=== PATIENT | male | born 1990 | race Caucasian/White ===

== ENCOUNTER 2017-01-07 09:23 | Inpatient (IN) | payer OTHER ==
[~2017-01-07] VITALS: Ht 193 cm; Wt 150.7 kg
--- NOTE | 2017-01-07 11:27 | DIAGNOSTIC IMAGING REPORT ---
PROCEDURE: XR TIBIA AND FIBULA - RIGHT INDICATION: TRAUMA/INJURY TECHNIQUE: Two views of the right tibia-fibula. COMPARISON: None. FINDINGS: Normal mineralization. No fractures. Normal osseous alignment. No suspicious soft-tissue calcification or radiodense foreign bodies. IMPRESSION: 1. Negative study.
--- NOTE | 2017-01-07 12:21 | ED CLINICAL REPORT ---
Clinical Report - Physicians/Mid Levels [facility] [address] [place] [address] 01/07/2017 9:24 Patient: BERNADETTE AGRAWAL Time Seen: 09:37 Smith 2016. Arrived- By ambulance. Historian- patient and EMS personnel. CPT: ER phys charges level 5 (#[id number]). HISTORY OF PRESENT ILLNESS Chief Complaint: Injury to right leg. 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 Fell. Patient is experiencing moderate pain. No other injury. REVIEW OF SYSTEMS The patient complains of pain on weight bearing. No swelling, tingling, weakness, numbness or suspected foreign body. No skin laceration, nasal congestion, sore throat, chest pain or cough. No difficulty breathing, pedal edema, palpitations, abdominal pain or diarrhea. No nausea, vomiting, urinary frequency, hematuria or alteration in mental status. No head injury, weakness, diabetic symptoms, easy bruising or difficulty with urination. The patient has had fever, chills, fatigue and calf pain. He has had difficulty walking. Abrasion right leg. All systems otherwise negative, except as recorded above. PAST HISTORY See nurses notes. ( Foot surgery). Problems: no known problems. Medications: Ibuprofen Oral. Allergies: No Known Drug Allergy. SOCIAL HISTORY Never smoker. History of drug use: marijuana. No alcohol use. ADDITIONAL NOTES The nursing notes have been reviewed. PHYSICAL EXAM Vital Signs: 01/07/2017 09:25 BP: 131/77. HR: 121. RR: 16. O2 saturation: 98%. Temp: 99 F. Pain level now: 7/10. Appearance: Alert. Appears to be in pain. Patient in mild distress. Head: Head atraumatic. Eyes: Eyes normal inspection. ENT: Pharynx normal. Neck: Normal inspection. CVS: Normal heart rate and rhythm. Heart sounds normal. Pulses normal. Respiratory: No respiratory distress. Breath sounds normal. Chest nontender. Abdomen: Soft and nontender. Back: Normal inspection. No tenderness. ROM normal. Skin: Skin warm. Moderate, erythematous skin rash located on the right leg. Extremities: Right leg: moderate erythema, tenderness and swelling and small abrasion located in the mid leg. Limited weight bearing secondary to pain. Neurovascular intact distally. No ecchymosis, foreign body or deformity. Extremities otherwise negative. Gait: Limping gait. Neuro, Vascular and Tendons: Vascular status intact. Sensation intact. Motor intact. Tendon function intact. Neuro: Oriented X 3. No motor deficit. No sensory deficit. LABS, X-RAYS, AND EKG X-Rays: Right tib/fib negative. Laboratory Tests: CBC w Manual Diff: (RADHA: 01/08/2017 06:00) ( IlgRcvd 01/08/2017 06:47) Final results Test Result Flag Units (Reference) WHITE BLOOD COUNT NO REFLEX 12.1 H K/uL (4.5-11.5) RED BLOOD COUNT 5.81 M/uL (4.50-5.90) HEMOGLOBIN 12.0 L gm/dL (13.5-17.5) HEMATOCRIT 38.5 L % (41.0-53.0) MEAN CELL VOLUME 66 L fL (80-100) MEAN CORPUSCULAR HGB 21 L pg (26-34) MEAN CORPUSCULAR HGB CONC 31 g/dL (31-37) RED CELL DISTRIBUTION WIDTH 16.8 H % (11.6-14.8) PLATELET COUNT 114 L K/uL (150-400) POLY % 80 H % (50-75) BAND % 3 % (0-8) LYMPH 13 L % (25-40) MONO 4 % (3-14) EOSINOPHIL % 0 % (0-4) BASOPHIL % 0 % (0-2) METAMYELOCYTE % 0 % (0-1) MYELOCYTE 0 % (0-1) OTHER CELL TYPE 0 RBC MORPHOLOGY 1+ ANISOCYTOSIS~~1+ HYPOCHROMIA BMP: (RADHA: 01/08/2017 06:00) ( MsgRcvd 01/08/2017 07:54) Final results Test Result Flag Units (Reference) GLUCOSE 237 H mg/dL (70-110) BUN 13 mg/dL (7-18) CREATININE 1.1 mg/dL (0.6-1.3) Estimated GFR >60 mL/min Estimated GFR- >60 mL/min Note: Persistent reduction over 3 months in eGFR<60 mL/min/1.73 m2 defines CKD. Patients with eGFR values>=60 mL/min/1.73 m2 may also have CKD if evidence ofpersistent proteinuria. Additional information may be foundat www.[email or web address].org. SODIUM 137 mmol/L (136-145) POTASSIUM 3.7 mmol/L (3.5-5.1) CHLORIDE 100 mmol/L (98-107) CARBON DIOXIDE 27 mmol/L (21-32) CALCIUM 7.7 L mg/dL (8.5-10.1) VITAMIN B12 146 pg/mL (211-946) FOLATE 14.6 ng/mL (>3.0) CBC w Diff: (RADHA: 01/07/2017 09:45) ( MsgRcvd 01/07/2017 10:35) Final results Test Result Flag Units (Reference) WHITE BLOOD COUNT 16.4 H K/uL (4.5-11.5) RED BLOOD COUNT 6.26 *H M/uL (4.50-5.90) HEMOGLOBIN 12.9 L gm/dL (13.5-17.5) HEMATOCRIT 41.2 % (41.0-53.0) MEAN CELL VOLUME 66 L fL (80-100) MEAN CORPUSCULAR HGB 21 L pg (26-34) MEAN CORPUSCULAR HGB CONC 31 g/dL (31-37) RED CELL DISTRIBUTION WIDTH 18.0 H % (11.6-14.8) PLATELET COUNT 150 K/uL (150-400) NEUTROPHIL % 84.4 H % (50-75) LYMPH % 8.5 L % (25-40) MONO % 6.8 % (3-14) EOSINOPHIL % 0 % (0-4) BASOPHIL % 0.3 % (0-2) RBC MORPHOLOGY 1+ ANISOCYTOSIS~~3+ MICROCYTOSIS~~1+ HYPOCHROMIA~~1+ POLYCHROMIA~~1+ STOMATOCYTOSIS [id number]: (RADHA: 01/07/2017 09:45) ( MsgRcvd 01/07/2017 10:14) Final results Test Result Flag Units (Reference) D-DIMER QUANTITATIVE < 0.27 L ug/mLFEU (0.27-0.52) The primary value of this quantitative assay relates toits negative predictive value (i.e. exclusion) of pulmonaryembolism/deep vein thrombosis/DIC.Elevated levels of d-dimer may also occur with:, age, cancer, inflammation, liver disease,post-op, infection, hematoma, coronary disease, peripheralarteriopathy, bleeding disorders and thrombolytic treatment.Results should be correlated with other clinical andradiological data.Testing Methodology: Latex Immunoassay BMP: (RADHA: 01/07/2017 16:00) ( MsgRcvd 01/07/2017 16:30) Final results Test Result Flag Units (Reference) GLUCOSE 222 H mg/dL (70-110) BUN 12 mg/dL (7-18) CREATININE 1.0 mg/dL (0.6-1.3) Estimated GFR >60 mL/min Estimated GFR- >60 mL/min Note: Persistent reduction over 3 months in eGFR<60 mL/min/1.73 m2 defines CKD. Patients with eGFR values>=60 mL/min/1.73 m2 may also have CKD if evidence ofpersistent proteinuria. Additional information may be foundat [email or web address].org. SODIUM 137 mmol/L (136-145) POTASSIUM 3.7 mmol/L (3.5-5.1) CHLORIDE 100 mmol/L (98-107) CARBON DIOXIDE 26 mmol/L (21-32) CALCIUM 8.5 mg/dL (8.5-10.1) [id number]: (RADHA: 01/07/2017 13:34) ( MsgRcvd 01/07/2017 14:23) Final results Test Result Flag Units (Reference) CALCULATED A1C 10.6 H % (4.5-6.2) The [place] [employer] recommends that aprimary goal of therapy should be a HbA1c of <7% and thatphysicians should reevaluate the treatment regimen inpatients with HbA1c values consistently >8%. ESTIMATED AVERAGE GLUCOSE 258 mg/dL [id number]: (RADHA: 01/07/2017 13:52) ( MsgRcvd 01/07/2017 14:44) Final results Test Result Flag Units (Reference) LACTIC ACID (SEPSIS) FOLLOWUP 2.6 H mmol/L (0.4-2.0) Results called:TO [employer] Lactate, Serum: (RADHA: 01/07/2017 09:55) ( [facility] 01/07/2017 11:01) Final results Test Result Flag Units (Reference) LACTIC ACID 2.5 H mmol/L (0.4-2.0) CRITICAL RESULTS CALLEDCalled to MONIKA [employer] 01/07/17 1100Were 2 patient identifiers used? YWas the result read back? Y [id number]: (RADHA: 01/07/2017 09:45) ( [facility] 01/07/2017 11:15) Final results Test Result Flag Units (Reference) PROCALCITONIN 0.8 H ng/mL (0-0.5) PCT Concentration: Interpretation : Risk/option for action PCT <=0.5 ng/mL : Systemic : Low risk forinfection(sepsis): progression to severeis not likely. : systemic infection.Local bacterial : CAUTION-PCT levelsinfection is : below 0.5 ng/mL do notpossible. : exclude an infection,because localizedinfections (withoutsystemic signs) may beassociated with suchlow levels. If PCT ismeasured very earlyafter a bacterialchallenge (usually <6hours), these valuesmay still be low. Inthis case PCT shouldbe re-assessed 6-24hours later. PCT >0.5 and : Systemic infection: Moderate risk for<= 2 ng/mL : (sepsis) is : progression to severepossible, but : systemic infection.other conditions : The patient should beare known to : closely monitoredelevate PCT. : both clinically andby re-assessing PCTwithin 6-24 hours. PCT > 2 ng/mL : Systemic infection: High risk for(sepsis) is likely: progression to severeunless other : systemic infection.causes are known. : PCT >= 10 ng/mL : Important systemic: High likelihood ofinflammatory : severe sepsis orresponse, almost : septic shock.exclusively due to:severe bacterial :sepsis or septic :shock. : CMP: (RADHA: 01/07/2017 09:45) ( MsgRcvd 01/07/2017 14:15) Final results Test Result Flag Units (Reference) GLUCOSE 348 H mg/dL (70-110) BUN 11 mg/dL (7-18) CREATININE 1.1 mg/dL (0.6-1.3) Estimated GFR >60 mL/min Estimated GFR- >60 mL/min Note: Persistent reduction over 3 months in eGFR<60 mL/min/1.73 m2 defines CKD. Patients with eGFR values>=60 mL/min/1.73 m2 may also have CKD if evidence ofpersistent proteinuria. Additional information may be foundat [email or web address]. SODIUM 136 mmol/L (136-145) POTASSIUM 3.8 mmol/L (3.5-5.1) CHLORIDE 99 mmol/L (98-107) CARBON DIOXIDE 24 mmol/L (21-32) CALCIUM 9.2 mg/dL (8.5-10.1) TOTAL PROTEIN 7.9 g/dL (6.4-8.2) ALBUMIN 3.8 g/dL (3.3-5.0) BILIRUBIN, TOTAL 1.5 H mg/dL (0.0-1.0) ALKALINE PHOSPHATASE 73 U/L (46-116) AST (SGOT) 22 U/L (15-37) ALT (SGPT) 66 U/L (12-78) CPK 33 U/L (24-260) C-REACTIVE PROTEIN 9.3 H mg/dL (0.0-0.9) . PROGRESS AND PROCEDURES Course of Care: IV NS BC times 2 Vancomycin 2g IV BActrim 2 po Clindamycin 1200 mg IV Zosyn 4.5gIV Pt with trauma and secondary cellulitis with tenderness and swelling. Does not have peripheral findings for compartment syndrome at this time but is at risk. Orthopedics consulted to evaluate. Discussed case with on-call health care provider, (Anais). Reviewed test results. Agreed upon treatment plan and decision to admit. Health care provider will see patient in ED. Patient/family counseled. Old medical records ordered. Disposition orders written. Disposition: Admitted to Acute Care. CLINICAL IMPRESSION Cellulitis of the right lower leg. New onset, poorly controlled type 2 diabetes with hyperglycemia. No coma. Sepsis (levsated lactic acid , tachycardia, fever.). Contusion to the right lower leg. Fall on same level by tripping. (Electronically signed by Cy Agrawal MD 01/08/2017 9:07)
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
--- NOTE | 2017-01-07 12:21 | ED ORDER SUMMARY ---
..... Patient: BERNADETTE AGRAWAL OrderSheet [facility] VisitID: [id number] [address] [place] [address] 26y, M Registration Date/Time: 01/07/2017 ORDER SHEET Weight: 154.6 kg (stated) Allergies: No Known Drug Allergy GENERAL ORDERS: CBC w Diff Urgent (09:01/07/2017 Guerda BURCIAGA) (Ack 9:49 Trey ER Tech1) (10:02 JBest R.N.) CMP Urgent (:01/07/2017 Guerda BURCIAGA) (Ack 9:49 Trey ER Tech1) (10:02 JBest R.N.) CPK Urgent (:01/07/2017 Guerda BURCIAGA) (Ack 9:49 Trey ER Tech1) (10:02 JBest R.N.) D-Dimer Urgent (:01/07/2017 Guerda BURCIAGA) (Ack 9:49 Trey ER Tech1) (10:02 JBest R.N.) PCT (Procalcitonin) Urgent (:01/07/2017 Guerda BURCIAGA) (Ack 9:49 Trey CONTRERAS Tech1) (10:02 JBest R.N.) Lactate, Serum Urgent (:01/07/2017 Guerda BURCIAGA) (Ack 9:49 Trey CONTRERAS Tech1) (10:01 JBest R.N.) Blood Culture (No) (N/A) Urgent (09:01/07/2017 Guerda BURCIAGA) (Ack 9:49 Trey ER Tech1) (10:01 JBest R.N.) Tibia/Fibula Right Urgent (09:01/07/2017 Guerda BURCIAGA) (Ack 9:49 Trey ER Tech1) (10:03 Trey ER Tech1) MEDICATION ORDERS: Bactrim DS PO (Tablet 800-160 mg) 2 tabs (NOW) (09:53 01/07/2017 Guerda BURCIAGA) (10:15 JBest R.N.) IV FLUIDS: IV NS : initial bolus 1000 mL (1000 mL/hr), then 200 mL/hr for 6h (NOW); Routine (09:46 01/07/2017 Guerda BURCIAGA) (10:09 Jorje R.N.) Vancomycin IV 2 gm/500 mL (NOW) (09:53 01/07/2017 Guerda BURCIAGA) (11:02 Jorje R.N.) Clindamycin IV 1200mg (NOW) (12:52 01/07/2017 Tess Galvan.N. verbal order read back to Sammi BURCIAGA) (13:25 Jorje R.N.) Zosyn IV 4.5 gm/100mL (NOW) (12:52 01/07/2017 Tess Galvan.NTesha verbal order read back to Sammi BURCIAGA) (14:22 Jorje R.N.) ORDER SHEET NOTES: [Electronically signed by Isela Nelson R.N. (17:55 01/07/2017)] [Electronically signed by Cy Agrawal MD (09:07 01/08/2017)] [Electronically locked/signed by Isela Nelson R.N. (17:55 01/07/2017)]
--- NOTE | 2017-01-07 12:21 | ED ORDER SUMMARY ---
..... Patient: BERNADETTE AGRAWAL OrderSheet [facility] VisitID: [id number] [address] [place] [address] 26y, M Registration Date/Time: 01/07/2017 ORDER SHEET Weight: 154.6 kg (stated) Allergies: No Known Drug Allergy GENERAL ORDERS: CBC w Diff Urgent (09:01/07/2017 Guerda BURCIAGA) (Ack 9:49 Trey ER Tech1) (10:02 JBest R.N.) CMP Urgent (:01/07/2017 Guerda BURCIAGA) (Ack 9:49 Trey ER Tech1) (10:02 JBest R.N.) CPK Urgent (:01/07/2017 Guerda BURCIAGA) (Ack 9:49 Trey ER Tech1) (10:02 JBest R.N.) D-Dimer Urgent (:01/07/2017 Guerda BURCIAGA) (Ack 9:49 Trey ER Tech1) (10:02 JBest R.N.) PCT (Procalcitonin) Urgent (:01/07/2017 Guerda BURCIAGA) (Ack 9:49 Trey CONTRERAS Tech1) (10:02 JBest R.N.) Lactate, Serum Urgent (:01/07/2017 Guerda BURCIAGA) (Ack 9:49 Trey CONTRERAS Tech1) (10:01 JBest R.N.) Blood Culture (No) (N/A) Urgent (09:01/07/2017 Guerda BURCIAGA) (Ack 9:49 Trey ER Tech1) (10:01 JBest R.N.) Tibia/Fibula Right Urgent (09:01/07/2017 Guerda BURCIAGA) (Ack 9:49 Trey ER Tech1) (10:03 Trey ER Tech1) MEDICATION ORDERS: Bactrim DS PO (Tablet 800-160 mg) 2 tabs (NOW) (09:53 01/07/2017 Guerda BURCIAGA) (10:15 JBest R.N.) IV FLUIDS: IV NS : initial bolus 1000 mL (1000 mL/hr), then 200 mL/hr for 6h (NOW); Routine (09:46 01/07/2017 Guerda BURCIAGA) (10:09 Jorje R.N.) Vancomycin IV 2 gm/500 mL (NOW) (09:53 01/07/2017 Guerda BURCIAGA) (11:02 Jorje R.N.) Clindamycin IV 1200mg (NOW) (12:52 01/07/2017 Tess Galvan.N. verbal order read back to Sammi BURCIAGA) (13:25 Jorje R.N.) Zosyn IV 4.5 gm/100mL (NOW) (12:52 01/07/2017 Tess Galvan.NTesha verbal order read back to Sammi BURCIAGA) (14:22 Jorje R.N.) ORDER SHEET NOTES: [Electronically signed by Isela Nelson R.N. (17:55 01/07/2017)] [Electronically signed by Cy Agrawal MD (09:07 01/08/2017)] [Electronically locked/signed by Isela Nelson R.N. (17:55 01/07/2017)]
--- NOTE | 2017-01-07 12:21 | ED CLINICAL REPORT ---
Clinical Report - Physicians/Mid Levels [facility] [address] [place] [address] 01/07/2017 9:24 Patient: BERNADETTE AGRAWAL Time Seen: 09:37 Smith 2016. Arrived- By ambulance. Historian- patient and EMS personnel. CPT: ER phys charges level 5 (#[id number]). HISTORY OF PRESENT ILLNESS Chief Complaint: Injury to right leg. 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 The patient sustained a moderate direct blow (on steel platform.). Fell. Patient is experiencing moderate pain. No other injury. REVIEW OF SYSTEMS The patient complains of pain on weight bearing. No swelling, tingling, weakness, numbness or suspected foreign body. No skin laceration, nasal congestion, sore throat, chest pain or cough. No difficulty breathing, pedal edema, palpitations, abdominal pain or diarrhea. No nausea, vomiting, urinary frequency, hematuria or alteration in mental status. No head injury, weakness, diabetic symptoms, easy bruising or difficulty with urination. The patient has had fever, chills, fatigue and calf pain. He has had difficulty walking. Abrasion right leg. All systems otherwise negative, except as recorded above. PAST HISTORY See nurses notes. ( Foot surgery). Problems: no known problems. Medications: Ibuprofen Oral. Allergies: No Known Drug Allergy. SOCIAL HISTORY Never smoker. History of drug use: marijuana. No alcohol use. ADDITIONAL NOTES The nursing notes have been reviewed. PHYSICAL EXAM Vital Signs: 01/07/2017 09:25 BP: 131/77. HR: 121. RR: 16. O2 saturation: 98%. Temp: 99 F. Pain level now: 7/10. Appearance: Alert. Appears to be in pain. Patient in mild distress. Head: Head atraumatic. Eyes: Eyes normal inspection. ENT: Pharynx normal. Neck: Normal inspection. CVS: Normal heart rate and rhythm. Heart sounds normal. Pulses normal. Respiratory: No respiratory distress. Breath sounds normal. Chest nontender. Abdomen: Soft and nontender. Back: Normal inspection. No tenderness. ROM normal. Skin: Skin warm. Moderate, erythematous skin rash located on the right leg. Extremities: Right leg: moderate erythema, tenderness and swelling and small abrasion located in the mid leg. Limited weight bearing secondary to pain. Neurovascular intact distally. No ecchymosis, foreign body or deformity. Extremities otherwise negative. Gait: Limping gait. Neuro, Vascular and Tendons: Vascular status intact. Sensation intact. Motor intact. Tendon function intact. Neuro: Oriented X 3. No motor deficit. No sensory deficit. LABS, X-RAYS, AND EKG X-Rays: Right tib/fib negative. Laboratory Tests: CBC w Manual Diff: (RADHA: 01/08/2017 06:00) ( NcgRcvd 01/08/2017 06:47) Final results Test Result Flag Units (Reference) WHITE BLOOD COUNT NO REFLEX 12.1 H K/uL (4.5-11.5) RED BLOOD COUNT 5.81 M/uL (4.50-5.90) HEMOGLOBIN 12.0 L gm/dL (13.5-17.5) HEMATOCRIT 38.5 L % (41.0-53.0) MEAN CELL VOLUME 66 L fL (80-100) MEAN CORPUSCULAR HGB 21 L pg (26-34) MEAN CORPUSCULAR HGB CONC 31 g/dL (31-37) RED CELL DISTRIBUTION WIDTH 16.8 H % (11.6-14.8) PLATELET COUNT 114 L K/uL (150-400) POLY % 80 H % (50-75) BAND % 3 % (0-8) LYMPH 13 L % (25-40) MONO 4 % (3-14) EOSINOPHIL % 0 % (0-4) BASOPHIL % 0 % (0-2) METAMYELOCYTE % 0 % (0-1) MYELOCYTE 0 % (0-1) OTHER CELL TYPE 0 RBC MORPHOLOGY 1+ ANISOCYTOSIS~~1+ HYPOCHROMIA BMP: (RADHA: 01/08/2017 06:00) ( MsgRcvd 01/08/2017 07:54) Final results Test Result Flag Units (Reference) GLUCOSE 237 H mg/dL (70-110) BUN 13 mg/dL (7-18) CREATININE 1.1 mg/dL (0.6-1.3) Estimated GFR >60 mL/min Estimated GFR- >60 mL/min Note: Persistent reduction over 3 months in eGFR<60 mL/min/1.73 m2 defines CKD. Patients with eGFR values>=60 mL/min/1.73 m2 may also have CKD if evidence ofpersistent proteinuria. Additional information may be foundat [email or web address]. SODIUM 137 mmol/L (136-145) POTASSIUM 3.7 mmol/L (3.5-5.1) CHLORIDE 100 mmol/L (98-107) CARBON DIOXIDE 27 mmol/L (21-32) CALCIUM 7.7 L mg/dL (8.5-10.1) VITAMIN B12 146 pg/mL (211-946) FOLATE 14.6 ng/mL (>3.0) CBC w Diff: (RADHA: 01/07/2017 09:45) ( MsgRcvd 01/07/2017 10:35) Final results Test Result Flag Units (Reference) WHITE BLOOD COUNT 16.4 H K/uL (4.5-11.5) RED BLOOD COUNT 6.26 *H M/uL (4.50-5.90) HEMOGLOBIN 12.9 L gm/dL (13.5-17.5) HEMATOCRIT 41.2 % (41.0-53.0) MEAN CELL VOLUME 66 L fL (80-100) MEAN CORPUSCULAR HGB 21 L pg (26-34) MEAN CORPUSCULAR HGB CONC 31 g/dL (31-37) RED CELL DISTRIBUTION WIDTH 18.0 H % (11.6-14.8) PLATELET COUNT 150 K/uL (150-400) NEUTROPHIL % 84.4 H % (50-75) LYMPH % 8.5 L % (25-40) MONO % 6.8 % (3-14) EOSINOPHIL % 0 % (0-4) BASOPHIL % 0.3 % (0-2) RBC MORPHOLOGY 1+ ANISOCYTOSIS~~3+ MICROCYTOSIS~~1+ HYPOCHROMIA~~1+ POLYCHROMIA~~1+ STOMATOCYTOSIS [id number]: (RADHA: 01/07/2017 09:45) ( MsgRcvd 01/07/2017 10:14) Final results Test Result Flag Units (Reference) D-DIMER QUANTITATIVE < 0.27 L ug/mLFEU (0.27-0.52) The primary value of this quantitative assay relates toits negative predictive value (i.e. exclusion) of pulmonaryembolism/deep vein thrombosis/DIC.Elevated levels of d-dimer may also occur with:, age, cancer, inflammation, liver disease,post-op, infection, hematoma, coronary disease, peripheralarteriopathy, bleeding disorders and thrombolytic treatment.Results should be correlated with other clinical andradiological data.Testing Methodology: Latex Immunoassay BMP: (RADHA: 01/07/2017 16:00) ( MsgRcvd 01/07/2017 16:30) Final results Test Result Flag Units (Reference) GLUCOSE 222 H mg/dL (70-110) BUN 12 mg/dL (7-18) CREATININE 1.0 mg/dL (0.6-1.3) Estimated GFR >60 mL/min Estimated GFR- >60 mL/min Note: Persistent reduction over 3 months in eGFR<60 mL/min/1.73 m2 defines CKD. Patients with eGFR values>=60 mL/min/1.73 m2 may also have CKD if evidence ofpersistent proteinuria. Additional information may be foundat [email or web address]. SODIUM 137 mmol/L (136-145) POTASSIUM 3.7 mmol/L (3.5-5.1) CHLORIDE 100 mmol/L (98-107) CARBON DIOXIDE 26 mmol/L (21-32) CALCIUM 8.5 mg/dL (8.5-10.1) [id number]: (RADHA: 01/07/2017 13:34) ( MsgRcvd 01/07/2017 14:23) Final results Test Result Flag Units (Reference) CALCULATED A1C 10.6 H % (4.5-6.2) The [place] [employer] recommends that aprimary goal of therapy should be a HbA1c of <7% and thatphysicians should reevaluate the treatment regimen inpatients with HbA1c values consistently >8%. ESTIMATED AVERAGE GLUCOSE 258 mg/dL [id number]: (RADHA: 01/07/2017 13:52) ( MsgRcvd 01/07/2017 14:44) Final results Test Result Flag Units (Reference) LACTIC ACID (SEPSIS) FOLLOWUP 2.6 H mmol/L (0.4-2.0) Results called:TO JAKE MAJOR ACCOUNT MANAGER Lactate, Serum: (RADHA: 01/07/2017 09:55) ( [facility] 01/07/2017 11:01) Final results Test Result Flag Units (Reference) LACTIC ACID 2.5 H mmol/L (0.4-2.0) CRITICAL RESULTS CALLEDCalled to MONIKA MAJOR ACCOUNT MANAGER 01/07/17 1100Were 2 patient identifiers used? YWas the result read back? Y [id number]: (RADHA: 01/07/2017 09:45) ( [facility] [place] 01/07/2017 11:15) Final results Test Result Flag Units (Reference) PROCALCITONIN 0.8 H ng/mL (0-0.5) PCT Concentration: Interpretation : Risk/option for action PCT <=0.5 ng/mL : Systemic : Low risk forinfection(sepsis): progression to severeis not likely. : systemic infection.Local bacterial : CAUTION-PCT levelsinfection is : below 0.5 ng/mL do notpossible. : exclude an infection,because localizedinfections (withoutsystemic signs) may beassociated with suchlow levels. If PCT ismeasured very earlyafter a bacterialchallenge (usually <6hours), these valuesmay still be low. Inthis case PCT shouldbe re-assessed 6-24hours later. PCT >0.5 and : Systemic infection: Moderate risk for<= 2 ng/mL : (sepsis) is : progression to severepossible, but : systemic infection.other conditions : The patient should beare known to : closely monitoredelevate PCT. : both clinically andby re-assessing PCTwithin 6-24 hours. PCT > 2 ng/mL : Systemic infection: High risk for(sepsis) is likely: progression to severeunless other : systemic infection.causes are known. : PCT >= 10 ng/mL : Important systemic: High likelihood ofinflammatory : severe sepsis orresponse, almost : septic shock.exclusively due to:severe bacterial :sepsis or septic :shock. : CMP: (RADHA: 01/07/2017 09:45) ( MsgRcvd 01/07/2017 14:15) Final results Test Result Flag Units (Reference) GLUCOSE 348 H mg/dL (70-110) BUN 11 mg/dL (7-18) CREATININE 1.1 mg/dL (0.6-1.3) Estimated GFR >60 mL/min Estimated GFR- >60 mL/min Note: Persistent reduction over 3 months in eGFR<60 mL/min/1.73 m2 defines CKD. Patients with eGFR values>=60 mL/min/1.73 m2 may also have CKD if evidence ofpersistent proteinuria. Additional information may be foundat [email or web address]. SODIUM 136 mmol/L (136-145) POTASSIUM 3.8 mmol/L (3.5-5.1) CHLORIDE 99 mmol/L (98-107) CARBON DIOXIDE 24 mmol/L (21-32) CALCIUM 9.2 mg/dL (8.5-10.1) TOTAL PROTEIN 7.9 g/dL (6.4-8.2) ALBUMIN 3.8 g/dL (3.3-5.0) BILIRUBIN, TOTAL 1.5 H mg/dL (0.0-1.0) ALKALINE PHOSPHATASE 73 U/L (46-116) AST (SGOT) 22 U/L (15-37) ALT (SGPT) 66 U/L (12-78) CPK 33 U/L (24-260) C-REACTIVE PROTEIN 9.3 H mg/dL (0.0-0.9) . PROGRESS AND PROCEDURES Course of Care: IV NS BC times 2 Vancomycin 2g IV BActrim 2 po Clindamycin 1200 mg IV Zosyn 4.5gIV Pt with trauma and secondary cellulitis with tenderness and swelling. Does not have peripheral findings for compartment syndrome at this time but is at risk. Orthopedics consulted to evaluate. Discussed case with on-call health care provider, (Anais). Reviewed test results. Agreed upon treatment plan and decision to admit. Health care provider will see patient in ED. Patient/family counseled. Old medical records ordered. Disposition orders written. Disposition: Admitted to Acute Care. CLINICAL IMPRESSION Cellulitis of the right lower leg. New onset, poorly controlled type 2 diabetes with hyperglycemia. No coma. Sepsis (levsated lactic acid , tachycardia, fever.). Contusion to the right lower leg. Fall on same level by tripping. (Electronically signed by Cy Agrawal MD 01/08/2017 9:07)
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
--- NOTE | 2017-01-07 13:09 | Progress Note ---
Subjective General Admission History and Physical Examination Patient Name: Michel Whitt Admission Date: January 07, 2017 Primary Care Provider: Tony Eric M.D. Attending Physician: Kendall Escalona MD Admitting Physician: Kendall Escalona M.D. Code Status: FULL CODE Room: 201 Status: Inpatient, ACU SUBJECTIVE Historian: Patient Reliability: Good Chief Complaint: Painful, red, swollen right lower leg History of Present Illness: The patient is a 26-year-old white male with a significant past medical history of obesity who presented to [facility] emergency department on the day of admission secondary to complaints of painful, swollen, erythematous right lower leg. [facility] ER evaluation was consistent with cellulitis of the right lower leg-rule out necrotizing fasciitis. Secondary to the above the patient was seen in consultation by Dr. Acevedo and admitted by Kendall Escalona M.D. (hospitalist service) for further evaluation and treatment. PAST MEDICAL HISTORY Illnesses: 1. Obesity Allergies: 1. No known drug allergies Medications: 1. None Surgery: 1. 2013, foot surgery Injuries: 1. 2013, foot injury Hospitalizations: 1. For previously mentioned surgery and medical problems. FAMILY HISTORY Parents: 1. Father, Dinh, living, 40s, healthy, 2. Mother, Lili, living, 40s, diabetes mellitus, hypertension Siblings: 1. Male, Khoi, living, 30, healthy Children: 1. None Other significant family history: None SOCIAL HISTORY 1. Marital Status: Single 2. Taoist: None 3. 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 Occupational health exposures: Dust, loud noises, heavy lifting HABITS 1. Tobacco: None 2. Drugs: None 3. Alcohol: None 4. Caffeine: Coffee-4 cups per day, Tea 8 cups per day, soft drinks 20 cans per day HEALTH SUPERVISION Item/Test 1. No recent health maintenance/supervision IMMUNIZATIONS: 1. Pneumococcal: Unknown 2. Influenza: Unknown 3. Tetanus: Unknown ADVANCED DIRECTIVES: 1. Living well: No 2. POLST: No 3. Code Status: FULL CODE 4. Durable Power Body Team Member Health care: No 5. Donor card: No REVIEW OF SYSTEMS Remarkable for those things stated in the history of present illness and past medical history. Seventeen point review of system completed with the following notable findings: General: Weight gain, fatigue, pain, weakness, fever Skin: Rash Eyes: Blurred vision, corrective lenses Ears: Ringing, hearing loss Throat: Hoarseness, sore throat Respiratory: Shortness of breath Cardiovascular: Chest tightness Physical Exam General Appearance Alert, Oriented X3, Cooperative, No acute distress HEENT Atraumatic, PERRLA, EOMI, Moist mucous membranes Lungs Clear to auscultation, Normal air movement Neck Supple, No JVD Cardiovascular Regular rate and rhythm, Normal S1 and S2, No murmurs, gallops, rubs Abdomen Normal bowel sounds, Soft, No tenderness, No guarding Extremities No cyanosis, No clubbing, (R) LE with swelling and erythema. Extremely tender to tough. Neurological Cranial nerves intact, No lateralizing signs Psych/Mental Status Mental status normal, Mood normal LAB Results Laboratory Tests 01/07 01/07 01/07 0955 [id number] [id number] Chemistry Plasma Sodium (136 - 145 mmol/L) 136 Plasma Potassium (3.5 - 5.1 mmol/L) 3.8 Plasma Chloride (98 - 107 mmol/L) 99 CO2 (Enzymatic) (21 - 32 mmol/L) 24 BUN (7 - 18 mg/dL) 11 Creatinine (0.6 - 1.3 mg/dL) 1.1 Est GFR ( Amer) (mL/min) >60 Est GFR (Non-Af Amer) (mL/min) >60 Glucose (70 - 110 mg/dL) 348 Lactic Acid (0.4 - 2.0 mmol/L) 2.5 Plasma Calcium (8.5 - 10.1 mg/dL) 9.2 Total Bilirubin (0.0 - 1.0 mg/dL) 1.5 AST (15 - 37 U/L) 22 ALT (12 - 78 U/L) 66 Alkaline Phosphatase (46 - 116 U/L) 73 Creatine Kinase (24 - 260 U/L) 33 C-Reactive Protein (0.0 - 0.9 mg/dL) Pending Total Protein (6.4 - 8.2 g/dL) 7.9 Albumin (3.3 - 5.0 g/dL) 3.8 Procalcitonin (0 - 0.5 ng/mL) 0.8 Coagulation D-Dimer, Quantitative (0.27 - 0.52 ug/mLFEU) < 0.27 Hematology WBC (4.5 - 11.5 K/uL) 16.4 RBC (4.50 - 5.90 M/uL) 6.26 Hgb (13.5 - 17.5 gm/dL) 12.9 Hct (41.0 - 53.0 %) 41.2 MCV (80 - 100 fL) 66 MCH (26 - 34 pg) 21 RDW (11.6 - 14.8 %) 18.0 Neut % (Auto) (50 - 75 %) 84.4 Lymph % (Auto) (25 - 40 %) 8.5 Delta % (Auto) (3 - 14 %) 6.8 Eos % (Auto) (0 - 4 %) 0 Baso % (Auto) (0 - 2 %) 0.3 Plt Count, EDTA (150 - 400 K/uL) 150 RBC Morphology (2799 A) 1+ STOMATOCYTOSIS PUBS MCHC (31 - 37 g/dL) 31 Microbiology Date/Time Procedure - Status Source Growth 01/07 1017 Blood Culture - RECD BLOOD 01/07 0947 Blood Culture - ORD BLOOD Assessment and Plan Problem List 1. Cellulitis Plan -Patient with findings of cellulitis right lower extremity -LRINEC score 3 -X-rays of right lower leg showed no signs of subcutaneous gas or gas within leg. -We'll continue antimicrobials in the form of Zosyn and vancomycin -Monitor closely -Status improved since admission no extension of erythema since admission 2. SIRS (systemic inflammatory response syndrome) Plan -Patient with findings of SIRS -Blood pressure well maintained -Serial lactate no signs of poor tissue perfusion at this time -Antimicrobial therapy as noted above 3. Diabetes mellitus Status Acute Onset Date Unknown Plan -Patient with new onset diabetes mellitus -Insulin sliding scale -Hemoglobin A1c elevated at 10.6 -Diabetic education -Weight reduction program -Check lipid profile 4. Anemia Status Acute Onset Date Unknown Plan -Patient with findings of mild anemia -H&H 12.9/41.2 MCV 66 -Check iron profile, B12, folate -Monitor E&M Codes Admission: Inpt-High/35637
--- NOTE | 2017-01-07 15:17 | Progress Note ---
Subjective General Feels better less pain but had pain medicatio Musculoskeletal Other. Physical Exam General Appearance Oriented X3, Feels better Extremities The right leg remains tender pretty much over the area of skin rash. It has not extended since the exam at 13:30 Assessment and Plan Problem List 1. Cellulitis 2. EARLY SEPSIS 3. New onset type 2 diabetes mellitus 4. SIRS (systemic inflammatory response syndrome)
[2017-01-07 16:44] VITALS: BP 134/76
--- NOTE | 2017-01-07 17:23 | Consultation Report ---
History Chief Complaint Pain in the right leg History of Present Illness The patient is seen at 1:15 PM and the dictation system was not functioning. 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 An abrasion formed on the knee. He did well until 3 days ago when the medial aspect of the knee skin was irritable and he awakened today and had redness and pain and could not bear weight on his leg. Prior to this hospitalization he was not aware he was diabetic but his admitting blood sugar was over 350. Patient History 1. Cellulitis 2. EARLY SEPSIS 3. New onset type 2 diabetes mellitus 4. SIRS (systemic inflammatory response syndrome) 5. Diabetes mellitus Social History He is single and works at [employer] Medications and Allergies Medications Current Medications Sig/Viviana Start time Last Medication Dose Route Stop Time Status Admin Insulin Human Lispro See Dose ACHS 01/07 1630 AC Insts (1) SC Vancomycin HCl See Dose .[PER PHARMACY] 01/07 1345 AC Insts (2) IV Acetaminophen 650 MG Q6H PRN 01/07 1330 AC PO Hydromorphone HCl 1 MG Q1H PRN 01/07 1330 AC IV Ondansetron HCl 4 MG Q6H PRN 01/07 1330 AC IV Sodium Chloride 1,000 ML ASDIRECTED 01/07 1330 AC IV Famotidine/Sodium 50 ML Q12HR 01/07 1328 AC Chloride IV Clindamycin 1,200 MG Q8H 01/07 1300 AC Phosphate/Dextrose IV Piperacillin Sod/ 4.5 GM Q6H 01/07 1300 AC Tazobactam Sod IV Sodium Chloride 100 ML Dose Instructions: (1)Insulin Human Lispro: MEDIUM DOSE SLIDING SCALE (2)Vancomycin HCl: DOSING PER PHARMACY Allergies Coded Allergies: NKA (01/07/17) Review of Systems Conclusions or Impression Past surgical history includes only that the left foot had a crush injury that required compartment syndrome releases. He has had his wisdom teeth extracted. Medical history includes an attempted suicide in May 2016 although he says he feels much better at this time and does not have any suicidal ideation. Physical Exam Vital Signs / I&Os Vital Signs Date Time Temp Pulse Resp B/P Pulse O2 O2 Flow FiO2 Ox Delivery Rate 01/07 1644 100.4 97 16 134/76 100 Room Air His pulse when he was seen at 1:15 PM was 126 and a blood pressure of 159/80 and he had a temperature of 102.2. Physical examination shows there is an excellent dorsalis pedis pulse. He has good sensation in all 5 toes and over the lateral aspect of the ankle and over the medial aspect of the ankle. Inspection of the leg shows there is a broad red area with a well defined margin superiorly medially and with lesser definition posteriorly. Tenderness over the leg is considerable at the area of redness with no proximal spread of the tenderness and no distal spread of the tenderness. The area was outlined today with a surgical marking pen. Compartments are soft. X-rays show no foreign body in the leg and no sign of gas and well defined muscular planes. General Appearance Alert, Oriented X3, Cooperative, Moderate distress Assessment and Plan Problem List 1. Cellulitis 2. EARLY SEPSIS 3. New onset type 2 diabetes mellitus 4. SIRS (systemic inflammatory response syndrome) 5. Diabetes mellitus Onset Date Unknown Status Acute Plan Plan Follow his vital signs and repeat his cysts his leg and 1-1/2 hours and 3 hours and if there is no extension of the tenderness and reduced the frequency of observation. I agree with keeping him on the vancomycin, Zosyn, and clindamycin at this time. Thank you for this consultation.
--- NOTE | 2017-01-07 18:06 | Progress Note ---
Subjective General Feeling less pain. Physical Exam Vital Signs / I&Os Vital Signs Date Time Temp Pulse Resp B/P Pulse O2 O2 Flow FiO2 Ox Delivery Rate 01/07 1644 100.4 97 16 134/76 100 Room Air General Appearance Alert, Oriented X3, No acute distress Extremities redness receded from four hours ago. But there is still tenderness in the area marked out as the original redness.Movement of toes is not painful. Plan Plan Follow his vital signs and repeat his leg exam. I agree with keeping him on the vancomycin, Zosyn, and clindamycin at this time.
[2017-01-07 18:40] VITALS: BP 153/63
[2017-01-07 22:42] VITALS: BP 142/76
--- NOTE | 2017-01-07 23:44 | Progress Note ---
Subjective General Feels better than 5 hours ago Physical Exam Vital Signs / I&Os Vital Signs Date Time Temp Pulse Resp B/P Pulse O2 O2 Flow FiO2 Ox Delivery Rate 01/07 2242 99.0 96 18 142/76 97 Room Air 01/07 1840 100.2 112 16 153/63 98 Room Air 01/07 1800 Room Air 01/07 1644 100.4 97 16 134/76 100 Room Air General Appearance Alert, Oriented X3, Cooperative, No acute distress Other The right lower extremity has some proximal spread of redness but there is no tenderness and leg tenderness has improved noticably.
[2017-01-08 03:40] VITALS: BP 104/50
--- NOTE | 2017-01-08 06:21 | Progress Note ---
Subjective General Note Date: January 08, 2017 Admission Date: January 07, 2017 Hospital Day: 2 PCP: Tony Eric M.D. Status: Inpatient, ACU Advanced Directive: FULL CODE Room: 201 Admission History: The patient is a 26-year-old white male with a significant past medical history of obesity who presented to [facility] emergency department on the day of admission secondary to complaints of painful, swollen, erythematous right lower leg. [facility] ER evaluation was consistent with cellulitis of the right lower leg-rule out necrotizing fasciitis. Secondary to the above the patient was seen in consultation by Dr. Acevedo and admitted by Kendall Escalona M.D. (hospitalist service) for further evaluation and treatment. For other history present illness, past medical history, family history, social history, review of systems, and admission physical examination please see the patient's history and physical examination and ER visit note in the patient's medical record. Subjective: The patient States that his leg is somewhat improved today. Persistent pain but less than yesterday. No other specific complaints. Patient requests: None Medications and Allergies Medications Current Medications Sig/Viviana Start time Last Medication Dose Route Stop Time Status Admin Clarify Med Order See Dose 1130 01/08 1130 AC Insts (1) IV 01/08 1159 Vancomycin HCl/ 200 ML Q6HR 01/07 1800 AC 01/08 Dextrose IV 0523 Insulin Human Lispro See Dose ACHS 01/07 1630 AC 01/07 Insts (2) SC 2102 Vancomycin HCl See Dose .[PER PHARMACY] 01/07 1345 AC Insts (3) IV Acetaminophen 650 MG Q6H PRN 01/07 1330 AC 01/07 PO 1954 Hydromorphone HCl 1 MG Q1H PRN 01/07 1330 AC 01/08 IV 0438 Ondansetron HCl 4 MG Q6H PRN 01/07 1330 AC IV Sodium Chloride 1,000 ML ASDIRECTED 01/07 1330 AC IV Famotidine/Sodium 50 ML Q12HR 01/07 1328 AC 01/07 Chloride IV 2228 Clindamycin 1,200 MG Q8H 01/07 1300 AC 07/ Phosphate/Dextrose IV 0437 Piperacillin Sod/ 4.5 GM Q6H 01/07 1300 AC 01/08 Tazobactam Sod IV 0119 Sodium Chloride 100 ML Dose Instructions: (1)Clarify Med Order: VANCOMYCIN TROUGH (2)Insulin Human Lispro: MEDIUM DOSE SLIDING SCALE (3)Vancomycin HCl: DOSING PER PHARMACY Allergies Coded Allergies: NKA (01/07/17) Physical Exam Vital Signs / I&Os Vital Signs Date Time Temp Pulse Resp B/P Pulse O2 O2 Flow FiO2 Ox Delivery Rate 01/08 0340 100.8 100 18 104/50 100 Room Air 01/07 2242 99.0 96 18 142/76 97 Room Air 01/07 1840 100.2 112 16 153/63 98 Room Air 01/07 1800 Room Air 01/07 1644 100.4 97 16 134/76 100 Room Air I&O 01/08 0000 01/07 1600 01/07 0800 Intake Total 966 Output Total 0 Balance 966 General Appearance Alert, Oriented X3, Cooperative, No acute distress Lungs Clear to auscultation, Normal air movement Cardiovascular Regular rate and rhythm, Normal S1 and S2 Abdomen Normal bowel sounds, Soft, No tenderness Extremities No cyanosis, No clubbing, mild edema right lower leg. Persistent erythema which appears stable without significant spread over the past 12 hours. Persistent pain with palpation. Neurological Cranial nerves intact, No lateralizing signs Psych/Mental Status Mental status normal, Mood normal LAB Results Laboratory Tests 01/08 01/07 01/07 01/07 01/07 0600 1600 1352 1334 0955 Chemistry Plasma Sodium (136 - 145 mmol/L) Pending 137 Plasma Potassium (3.5 - 5.1 mmol/L) Pending 3.7 Plasma Chloride (98 - 107 mmol/L) Pending 100 CO2 (Enzymatic) (21 - 32 mmol/L) Pending 26 BUN (7 - 18 mg/dL) Pending 12 Creatinine (0.6 - 1.3 mg/dL) Pending 1.0 Est GFR ( Amer) (mL/min) Pending >60 Est GFR (Non-Af Amer) (mL/min) Pending >60 Glucose (70 - 110 mg/dL) Pending 222 Hemoglobin A1c % (4.5 - 6.2 %) 10.6 Lactic Acid (0.4 - 2.0 mmol/L) 2.6 2.5 Plasma Calcium (8.5 - 10.1 mg/dL) Pending 8.5 Hematology WBC (4.5 - 11.5 K/uL) 12.1 RBC (4.50 - 5.90 M/uL) 5.81 Hgb (13.5 - 17.5 gm/dL) 12.0 Hct (41.0 - 53.0 %) 38.5 MCV (80 - 100 fL) 66 MCH (26 - 34 pg) 21 RDW (11.6 - 14.8 %) 16.8 Neut % (Auto) (50 - 75 %) Pending Lymph % (Auto) (25 - 40 %) Pending [place] % (Auto) (3 - 14 %) Pending Band Neutrophils % (0 - 8 %) Pending Plt Count, EDTA (150 - 400 K/uL) 114 PUBS MCHC (31 - 37 g/dL) 01/07 0945 0945 Chemistry Plasma Sodium (136 - 145 mmol/L) 136 Plasma Potassium (3.5 - 5.1 mmol/L) 3.8 Plasma Chloride (98 - 107 mmol/L) 99 CO2 (Enzymatic) (21 - 32 mmol/L) 24 BUN (7 - 18 mg/dL) 11 Creatinine (0.6 - 1.3 mg/dL) 1.1 Est GFR ( Amer) (mL/min) >60 Est GFR (Non-Af Amer) (mL/min) >60 Glucose (70 - 110 mg/dL) 348 Plasma Calcium (8.5 - 10.1 mg/dL) 9.2 Total Bilirubin (0.0 - 1.0 mg/dL) 1.5 AST (15 - 37 U/L) 22 ALT (12 - 78 U/L) 66 Alkaline Phosphatase (46 - 116 U/L) 73 Creatine Kinase (24 - 260 U/L) 33 C-Reactive Protein (0.0 - 0.9 mg/dL) 9.3 Total Protein (6.4 - 8.2 g/dL) 7.9 Albumin (3.3 - 5.0 g/dL) 3.8 Procalcitonin (0 - 0.5 ng/mL) 0.8 Coagulation D-Dimer, Quantitative (0.27 - 0.52 ug/mLFEU) < 0.27 Hematology WBC (4.5 - 11.5 K/uL) 16.4 RBC (4.50 - 5.90 M/uL) 6.26 Hgb (13.5 - 17.5 gm/dL) 12.9 Hct (41.0 - 53.0 %) 41.2 MCV (80 - 100 fL) 66 MCH (26 - 34 pg) 21 RDW (11.6 - 14.8 %) 18.0 Neut % (Auto) (50 - 75 %) 84.4 Lymph % (Auto) (25 - 40 %) 8.5 [place] % (Auto) (3 - 14 %) 6.8 Eos % (Auto) (0 - 4 %) 0 Baso % (Auto) (0 - 2 %) 0.3 Plt Count, EDTA (150 - 400 K/uL) 150 RBC Morphology (2799 A) 1+ STOMATOCYTOSIS PUBS MCHC (31 - 37 g/dL) 31 Microbiology Date/Time Procedure - Status Source Growth 01/07 1017 Blood Culture - RECD BLOOD 01/07 0947 Blood Culture - COLB BLOOD Assessment and Plan Problem List 1. Cellulitis Plan -Patient with findings of cellulitis. -CT scan shows no signs of necrotizing fasciitis -Continue present therapy with vancomycin, clindamycin, and Zosyn. 2. Diabetes mellitus Status Acute Onset Date Unknown Plan -Blood sugars improved -Continue with long-acting/short-acting insulin-insulin sliding scale -Monitor -Diabetic education -Consistent carbohydrate diet 3. Anemia Status Acute Onset Date Unknown Plan -Patient with findings of iron deficiency anemia -Ferrous sulfate 325 mg by mouth twice a day Current status: Fair, stable Anticipated discharge date: Anticipated discharge in 2-3 days Anticipated discharge placement: Home Patient care time: Time in chart review, patient interview, physical exam, CPOE, and care documentation: 25 mins Visit to patient today: 2 Complexity of care: Moderate DVT prophylaxis: Lovenox E&M Codes Rounding: Inpt-Moderate/[id number]
[2017-01-08 07:11] VITALS: BP 138/69
--- NOTE | 2017-01-08 09:07 | ED MAR SUMMARY ---
..... Medication Administration Record [facility] [address] [place] [address] Patient: BERNADETTE AGRAWAL Visit ID: [id number] 26y, M Weight: 154.6 kg Height/Length: 76 in BMI: 41.5 ALLERGIES: No Known Drug Allergy Start 10:09 01/07/2017 Isela Nelson R.N. Medication Administered: IV NS (SALINE), Dose: IV Fluids over 1 hour(s), Rate: 1000 mL/hr, Dispensed: 1000 mL bag, Site: #1 left forearm. Medication Ordered: IV NS : initial bolus 1000 mL (1000 mL/hr), then 200 mL/hr for 6h (NOW); Routine. Given 10:15 01/07/2017 Isela Nelson R.N. Medication Administered: BACTRIM DS [PO] (SULFAMETHOXAZOLE-TMP DS), Dose: 2 tab Tablets PO. Medication Ordered: Bactrim DS PO (Tablet 800-160 mg) 2 tabs (NOW). Start 11:02 01/07/2017 Isela Nelson R.N., Stop 12:59 01/07/2017 Isela Nelson R.N. Medication Administered: VANCOMYCIN [IVPB], Dose: 2 gm IVPB over 2 hour(s), Rate: 270 mL/hr, Dispensed: 500 mL bag, Site: #1 left forearm. Medication Ordered: Vancomycin IV 2 gm/500 mL (NOW). Start 13:15 01/07/2017 Isela Nelson R.N., Stop 13:49 01/07/2017 Isela Nelson R.N. Medication Administered: CLINDAMYCIN [IVPB], Dose: 600 mg IVPB over 30 minute(s), Rate: 100 mL/hr, Dispensed: 50 mL bag, Site: #1 left forearm. Medication Ordered: Clindamycin IV 1200mg (NOW). Start 13:49 01/07/2017 Isela Nelson R.N., Stop 14:21 01/07/2017 Isela Nelson R.N. Medication Administered: CLINDAMYCIN [IVPB], Dose: 600 mg IVPB over 30 minute(s), Rate: 100 mL/hr, Dispensed: 50 mL bag, Site: #1 left forearm. Medication Ordered: Clindamycin IV 1200mg (NOW). Start 14:22 01/07/2017 Isela Nelson R.N. Medication Administered: ZOSYN [IVPB] (PIPERACILLIN SOD-TAZOBACTAM SO), Dose: 4.5 gm IVPB over 1 hour(s), Rate: 100 mL/hr, Dispensed: 100 mL bag, Site: #1 left forearm. Medication Ordered: Zosyn IV 4.5 gm/100mL (NOW).
--- NOTE | 2017-01-08 09:07 | ED MAR SUMMARY ---
..... Medication Administration Record [facility] [address] [place] [address] Patient: BERNADETTE AGRAWAL Visit ID: [id number] 26y, M Weight: 154.6 kg Height/Length: 76 in BMI: 41.5 ALLERGIES: No Known Drug Allergy Start 10:09 01/07/2017 Isela Nelson R.N. Medication Administered: IV NS (SALINE), Dose: IV Fluids over 1 hour(s), Rate: 1000 mL/hr, Dispensed: 1000 mL bag, Site: #1 left forearm. Medication Ordered: IV NS : initial bolus 1000 mL (1000 mL/hr), then 200 mL/hr for 6h (NOW); Routine. Given 10:15 01/07/2017 Isela Nelson R.N. Medication Administered: BACTRIM DS [PO] (SULFAMETHOXAZOLE-TMP DS), Dose: 2 tab Tablets PO. Medication Ordered: Bactrim DS PO (Tablet 800-160 mg) 2 tabs (NOW). Start 11:02 01/07/2017 Isela Nelson R.N., Stop 12:59 01/07/2017 Isela Nelson R.N. Medication Administered: VANCOMYCIN [IVPB], Dose: 2 gm IVPB over 2 hour(s), Rate: 270 mL/hr, Dispensed: 500 mL bag, Site: #1 left forearm. Medication Ordered: Vancomycin IV 2 gm/500 mL (NOW). Start 13:15 01/07/2017 Isela Nelson R.N., Stop 13:49 01/07/2017 Isela Nelson R.N. Medication Administered: CLINDAMYCIN [IVPB], Dose: 600 mg IVPB over 30 minute(s), Rate: 100 mL/hr, Dispensed: 50 mL bag, Site: #1 left forearm. Medication Ordered: Clindamycin IV 1200mg (NOW). Start 13:49 01/07/2017 Isela Nelson R.N., Stop 14:21 01/07/2017 Isela Nelson R.N. Medication Administered: CLINDAMYCIN [IVPB], Dose: 600 mg IVPB over 30 minute(s), Rate: 100 mL/hr, Dispensed: 50 mL bag, Site: #1 left forearm. Medication Ordered: Clindamycin IV 1200mg (NOW). Start 14:22 01/07/2017 Isela Nelson R.N. Medication Administered: ZOSYN [IVPB] (PIPERACILLIN SOD-TAZOBACTAM SO), Dose: 4.5 gm IVPB over 1 hour(s), Rate: 100 mL/hr, Dispensed: 100 mL bag, Site: #1 left forearm. Medication Ordered: Zosyn IV 4.5 gm/100mL (NOW).
--- NOTE | 2017-01-08 09:07 | ED MED RECONCILIATION SUMMARY ---
Patient: BERNADETTE AGRAWAL Medication Reconciliation Report [facility] VisitID: [id number] [address] [place] [address] 26y, M Registration Date/Time: 01/07/2017 Weight: 154.6 kg Height/Length: 76 in. BMI: 41.5 ALLERGIES: No Known Drug Allergy The patient's Home Medications are listed below: THE FOLLOWING MEDICATIONS NEED TO BE RECONCILED: Ibuprofen Oral The source(s) of the original Home Medication information: Not obtained. The following Medications were given to the patient in the Emergency Department: IV NS IV Fluids bolus 0, then 1000 mL/hr, administered: 01/07/2017 10:09:00 AM Bactrim DS [PO] PO 2 tab, administered: 01/07/2017 10:15:00 AM Vancomycin [IVPB] IVPB bolus 0, then 2 gm 270 mL/hr, administered: 01/07/2017 11:02:00 AM Clindamycin [IVPB] IVPB bolus 0, then 600 mg 100 mL/hr, administered: 01/07/2017 1:15:00 PM Clindamycin [IVPB] IVPB bolus 0, then 600 mg 100 mL/hr, administered: 01/07/2017 1:49:00 PM Zosyn [IVPB] IVPB bolus 0, then 4.5 gm 100 mL/hr, administered: 01/07/2017 2:22:00 PM The following Medications were prescribed to the patient: None.
--- NOTE | 2017-01-08 09:07 | ED DISCHARGE INSTRUCTIONS ---
Patient: BERNADETTE AGRAWAL General Instructions [facility] VisitID: [id number] [place] [address] 26y, M Registration Date/Time: 01/07/2017 Cellulitis of the right lower leg. New onset, poorly controlled type 2 diabetes with hyperglycemia. No coma. Sepsis (levsated lactic acid , tachycardia, fever.). Contusion to the right lower leg. Fall on same level by tripping. ADDITIONAL INFORMATION Mechanical Fall You have had a fall today. It appears that the cause is mechanical. That means that you slipped, tripped or lost your balance. If your fall had been due to fainting or a seizure, further tests would be required. Home Care: Rest today and resume your normal activities when you are feeling back to normal. If you were injured during the fall, follow the advice from your doctor regarding care of your injury. You may use acetaminophen (Tylenol) or ibuprofen (Motrin, Advil) to control pain, unless another pain medicine was prescribed. [NOTE: If you have chronic liver or kidney disease or ever had a stomach ulcer or GI bleeding, talk with your doctor before using these medicines.] Fall Prevention: Was there anything that caused your fall that can be fixed, removed, or replaced? Make your home safe by keeping walkways clear of objects you may trip over. Use non-slip pads under rugs. Do not walk in poorly lit areas. Do not stand on chairs or wobbly ladders. Use caution when reaching overhead or looking upward. This position can cause a loss of balance. Be sure your shoes fit properly, have non-slip bottoms and are in good condition. Be cautious when going up and down curbs, and walking on uneven sidewalks. If your balance is poor, consider using a cane or walker. Stay as active as you can. Balance, flexibility, strength, and endurance all come from exercise. They all play a role in preventing falls. Follow Up with your doctor or as advised by our staff. Get Prompt Medical Attention if any of the following occur: Repeated mechanical falls, or unexplained falls Dizziness, fainting or seizure Severe headache Chest pain or shortness of breath Palpitations (very rapid or very slow or irregular heartbeat) Blood in vomit, stools (black or red color) Weakness of an arm or leg or one side of the face Difficulty with speech or vision Contusion,Soft Tissue You have a CONTUSION, which is a bruise with swelling and some bleeding under the skin. There are no broken bones. This injury takes a few days to a few weeks to heal. Home Care: 1) Keep the injured part elevated to reduce pain and swelling. This is especially important during the first 48 hours. 2) Make an ice pack (ice cubes in a plastic bag, wrapped in a towel) and apply for 20 minutes every 1-2 hours the first day. Continue this 3-4 times a day until the pain and swelling goes away. 3) You may use acetaminophen (Tylenol) or ibuprofen (Motrin, Advil) to control pain, unless another pain medicine was prescribed. [ NOTE : If you have chronic liver or kidney disease or ever had a stomach ulcer or GI bleeding, talk with your doctor before using these medicines.] Follow Up with your doctor or this facility if you are not improving within the next THREE days. [NOTE: If X-rays were taken, they will be reviewed by a radiologist. You will be notified of any new findings that may affect your care.] Get Prompt Medical Attention if any of the following occur: -- Pain or swelling increases -- Injured arm or leg becomes cold, blue, numb or tingly -- Redness, warmth or drainage from the skin Cellulitis You have an infection of the skin known as cellulitis. This usually starts with a scrape, cut, insect bite, blister or other opening in the skin which becomes infected. This is a serious condition. It must be watched closely to be sure the infection is not spreading. With antibiotic treatment, the size of the red area will gradually shrink in size until the skin returns to normal. This will take 7-10 days. The red area should never increase in size once the antibiotic medicine has been started. Occasionally, an infection will be resistant to one antibiotic and another one will have to be used. Home Care: 1) Limit the use of the affected part, since excess movement can cause the infection to spread. 2) If the infection is on your leg, walk as little as possible during the first few days of the treatment. Keep your leg elevated while sitting. This will reduce swelling. 3) Take all of the antibiotic medicine exactly as directed until it is gone. Be careful not to miss any doses, especially during the first seven days. Follow Up with your doctor or this facility as directed. Check the infected area daily for the warning signs listed below. Get Prompt Medical Attention if any of the following occur: -- Spreading area of redness -- Increasing swelling or pain -- Appearance of pus or drainage -- Fever over 100.4 F (38.0 C) oral, or over 101.4 F (38.6 C) rectal, after two days on antibiotics You have been given the following additional information: Fall, Mechanical Contusion, Soft Tissue Cellulitis (Electronically signed by Cy Agrawal MD 01/08/2017 9:07)
--- NOTE | 2017-01-08 09:07 | ED MED RECONCILIATION SUMMARY ---
Patient: BERNADETTE AGRAWAL Medication Reconciliation Report [facility] VisitID: [id number] [address] [place] [address] 26y, M Registration Date/Time: 01/07/2017 Weight: 154.6 kg Height/Length: 76 in. BMI: 41.5 ALLERGIES: No Known Drug Allergy The patient's Home Medications are listed below: THE FOLLOWING MEDICATIONS NEED TO BE RECONCILED: Ibuprofen Oral The source(s) of the original Home Medication information: Not obtained. The following Medications were given to the patient in the Emergency Department: IV NS IV Fluids bolus 0, then 1000 mL/hr, administered: 01/07/2017 10:09:00 AM Bactrim DS [PO] PO 2 tab, administered: 01/07/2017 10:15:00 AM Vancomycin [IVPB] IVPB bolus 0, then 2 gm 270 mL/hr, administered: 01/07/2017 11:02:00 AM Clindamycin [IVPB] IVPB bolus 0, then 600 mg 100 mL/hr, administered: 01/07/2017 1:15:00 PM Clindamycin [IVPB] IVPB bolus 0, then 600 mg 100 mL/hr, administered: 01/07/2017 1:49:00 PM Zosyn [IVPB] IVPB bolus 0, then 4.5 gm 100 mL/hr, administered: 01/07/2017 2:22:00 PM The following Medications were prescribed to the patient: None.
--- NOTE | 2017-01-08 09:13 | Progress Note ---
Subjective General Feels about the same as midnight. Physical Exam Vital Signs / I&Os Vital Signs Date Time Temp Pulse Resp B/P Pulse O2 O2 Flow FiO2 Ox Delivery Rate 01/08 0711 99.0 109 18 138/69 100 Room Air 01/08 0340 100.8 100 18 104/50 100 Room Air 01/07 2242 99.0 96 18 142/76 97 Room Air 01/07 1840 100.2 112 16 153/63 98 Room Air 01/07 1800 Room Air 01/07 1644 100.4 97 16 134/76 100 Room Air I&O 01/07 0800 01/07 1600 01/08 0000 Intake Total 966 Output Total 0 Balance 966 General Appearance Alert, Oriented X3, Cooperative, Mild distress Other Afebrile now but overnight up to 100.8. The redness is about two inches above the tiesha made on 13:30 01/07/17. The severe tenderness is now limited to a seven inch oval aound the original abraision site on the medial knee. Plan Assessment Leg exam is improved in terms of tenderness but he was febrile overnight and still has marked tenderness around the original abraision on the right medial knee. Plan Follow his vital signs and repeat his leg exam. I agree with keeping him on the vancomycin, Zosyn, and clindamycin at this time.
[2017-01-08 11:00] VITALS: BP 130/86
[2017-01-08 15:04] VITALS: BP 147/78
--- NOTE | 2017-01-08 16:06 | DIAGNOSTIC IMAGING REPORT ---
PROCEDURE: CT LOWER EXT W/CONTRAST-RIGHT INDICATION: Right leg cellulitis. Assess for necrotizing fasciitis. TECHNIQUE: 140 ml of Isovue 300 injected intravenously and axial images were obtained from the distal site through the ankle with sagittal and coronal re-formations. COMPARISON: Comparison made radiographs of the right tibia and fibula on 01/07/2017. FINDINGS: There is marked subcutaneous edema surrounding the right knee and calf. However, there is little evidence of deep fascial edema and there is no evidence of soft tissue emphysema. There is no evidence of fluid collection or abscess. No evidence of radiopaque foreign body. IMPRESSION: 1. Marked edema of the right knee and calf compatible with cellulitis. 2. No definite evidence of necrotizing fasciitis. 3. No evidence of fluid collection or abscess. 4. Findings called to Dr. Escalona. All CT scans at this facility use dose modulation, iterative reconstruction, and/or weight-based dosing when appropriate to reduce radiation dose to as low as reasonably achievable.
[2017-01-08 18:50] VITALS: BP 143/87
[2017-01-08 22:33] VITALS: BP 141/69
[2017-01-09 02:41] VITALS: BP 148/74
--- NOTE | 2017-01-09 07:13 | Progress Note ---
Subjective General Note Date: January 09 Admission Date: January 07, 2017 Hospital Day: 3 PCP: Tony Eric M.D. Status: Inpatient, ACU Advanced Directive: FULL CODE Room: 201 Admission History: The patient is a 26-year-old white male with a significant past medical history of obesity who presented to [facility] emergency department on the day of admission secondary to complaints of painful, swollen, erythematous right lower leg. [facility] ER evaluation was consistent with cellulitis of the right lower leg-rule out necrotizing fasciitis. Secondary to the above the patient was seen in consultation by Dr. Acevedo and admitted by Kendall Escalona M.D. (hospitalist service) for further evaluation and treatment. For other history present illness, past medical history, family history, social history, review of systems, and admission physical examination please see the patient's history and physical examination and ER visit note in the patient's medical record. Subjective: The patient states he is doing significantly better today. Persistent erythema and pain of lower leg but improved since chest pain. Patient states he has done well with mastering insulin administration Patient requests: None Medications and Allergies Medications Current Medications Sig/Viviana Start time Last Medication Dose Route Stop Time Status Admin Clarify Med Order See Dose 1130 01/09 1130 AC Insts (1) IV 01/09 1159 Clindamycin 50 ML Q8HR 01/09 0600 AC 01/09 Phosphate/Dextrose IV 0541 Vancomycin HCl 1,250 MG Q6H 01/08 2000 AC 01/09 Sodium Chloride 250 ML IV 0231 Ferrous Sulfate 325 MG BIDWC 01/08 1800 AC 01/08 PO 1914 Piperacillin Sod/ 4.5 GM Q6HR 01/08 1800 AC 01/09 Tazobactam Sod IV 0618 Sodium Chloride 100 ML Enoxaparin Sodium 40 MG DAILY 01/08 1330 AC 01/08 SC 1419 Insulin Glargine 10 UNITS QAM 01/08 0900 AC 01/08 SC 0815 Insulin Human Lispro See Dose ACHS 01/07 1630 AC 01/08 Insts (2) SC 203 Vancomycin HCl See Dose .[PER PHARMACY] 01/07 1345 AC Insts (3) IV Acetaminophen 650 MG Q6H PRN 01/07 1330 AC 01/07 PO 1954 Hydromorphone HCl 1 MG Q1H PRN 01/07 1330 AC 01/09 IV 0228 Ondansetron HCl 4 MG Q6H PRN 01/07 1330 AC IV Sodium Chloride 1,000 ML ASDIRECTED 01/07 1330 AC 01/08 IV 1030 Famotidine/Sodium 50 ML Q12HR 01/07 1328 AC 01/08 Chloride IV 2223 Dose Instructions: (1)Clarify Med Order: VANCOMYCIN TROUGH (2)Insulin Human Lispro: MEDIUM DOSE SLIDING SCALE (3)Vancomycin HCl: DOSING PER PHARMACY Allergies Coded Allergies: NKA (01/07/17) Physical Exam Vital Signs / I&Os Vital Signs Date Time Temp Pulse Resp B/P Pulse O2 O2 Flow FiO2 Ox Delivery Rate 01/09 0241 99.9 100 18 148/74 99 Room Air 01/09 0045 Room Air 01/08 2233 99.9 99 17 141/69 100 Room Air 01/08 1850 99.1 103 18 143/87 100 Room Air 01/08 1630 Room Air 01/08 1504 99.3 116 18 147/78 96 Room Air 01/08 1100 100.2 107 18 130/86 100 Room Air I&O 01/09 0000 01/08 1600 01/08 0800 Intake Total 2844 0 844 Output Total 524 027 1630 Balance 2169 -561 -306 General Appearance Alert, Oriented X3, Cooperative, No acute distress Lungs Clear to auscultation, Normal air movement Cardiovascular Regular rate and rhythm, Normal S1 and S2, No murmurs, gallops, rubs Abdomen Normal bowel sounds, Soft, No tenderness Extremities No cyanosis, No clubbing, Persistent erythema and edema right lower leg. Area around initial wound site appears fluctuant. Neurological Cranial nerves intact, No lateralizing signs Psych/Mental Status Mental status normal, Mood normal LAB Results Laboratory Tests 01/09 01/08 01/08 0555 1125 0930 Chemistry Plasma Sodium (136 - 145 mmol/L) 136 Plasma Potassium (3.5 - 5.1 mmol/L) 3.7 Plasma Chloride (98 - 107 mmol/L) 101 CO2 (Enzymatic) (21 - 32 mmol/L) 27 BUN (7 - 18 mg/dL) 11 Creatinine (0.6 - 1.3 mg/dL) 0.9 Est GFR ( Amer) (mL/min) >60 Est GFR (Non-Af Amer) (mL/min) >60 Glucose (70 - 110 mg/dL) 147 Plasma Calcium (8.5 - 10.1 mg/dL) 7.7 Hematology WBC (4.5 - 11.5 K/uL) 9.2 RBC (4.50 - 5.90 M/uL) 5.18 Hgb (13.5 - 17.5 gm/dL) 10.7 Hct (41.0 - 53.0 %) 34.6 MCV (80 - 100 fL) 67 MCH (26 - 34 pg) 21 RDW (11.6 - 14.8 %) 17.8 Neut % (Auto) (50 - 75 %) Pending Lymph % (Auto) (25 - 40 %) Pending [place] % (Auto) (3 - 14 %) Pending Band Neutrophils % (0 - 8 %) Pending Plt Count, EDTA (150 - 400 K/uL) 136 PUBS MCHC (31 - 37 g/dL) 31 Toxicology Vancomycin Trough (10.0 - 20.0 ug/mL) 8.3 Cancelled Assessment and Plan Problem List 1. Cellulitis Plan -Status stable -Possible development of abscess in original wound area -Check ultrasound -Continue present antimicrobial therapy will decrease clindamycin to 600 mg IV every 8 hours -WBC improved dropping from 16.4 on admission to 9.3 today. 2. SIRS (systemic inflammatory response syndrome) Plan -Resolved 3. Diabetes mellitus Status Acute Onset Date Unknown Plan -Blood sugars improved -Fasting blood sugar 147 -Continue Lantus/Humalog sliding scale -Continue diabetic education 4. Iron deficiency anemia Status Acute Onset Date Unknown Plan -Patient with findings of iron deficiency anemia -Ferrous sulfate 325 mg by mouth twice a day -Monitor Current status: Fair, improved Anticipated discharge date: Anticipated discharge in 2 days Anticipated discharge placement: Home Patient care time: Time in chart review, patient interview, physical exam, CPOE, and care documentation: 25 mins Visit to patient today: 1 Complexity of care: Moderate DVT prophylaxis: Lovenox E&M Codes Rounding: Inpt-Moderate/99316
[2017-01-09 07:35] VITALS: BP 120/61; BP 136/68
--- NOTE | 2017-01-09 10:54 | Progress Note ---
Subjective General He feels he can move better but still cnnot stand up. His knee hurts over the abraision area with much less pain elsewhere. Physical Exam Vital Signs / I&Os Vital Signs Date Time Temp Pulse Resp B/P Pulse O2 O2 Flow FiO2 Ox Delivery Rate 01/09 0241 99.9 100 18 148/74 99 Room Air 01/09 0045 Room Air 01/08 2233 99.9 99 17 141/69 100 Room Air 01/08 1850 99.1 103 18 143/87 100 Room Air 01/08 1630 Room Air 01/08 1504 99.3 116 18 147/78 96 Room Air 01/08 1100 100.2 107 18 130/86 100 Room Air I&O 01/08 0800 01/08 1600 01/09 0000 Intake Total 844 0 2844 Output Total 1600 675 675 Balance -091 -974 2169 General Appearance Alert, Oriented X3, Cooperative, No acute distress Extremities The intensity of redness has decreased although a light pink extension goes on further. Plan Assessment Leg exam is improved in terms of tenderness but he was febrile overnight and still has marked tenderness around the original abraision on the right medial knee. Plan Follow his vital signs and repeat his leg exam. I agree with keeping him on the vancomycin, Zosyn, and clindamycin at this time.
[2017-01-09 11:36] VITALS: BP 134/70
[2017-01-09 14:23] VITALS: BP 144/75
--- NOTE | 2017-01-09 16:06 | DIAGNOSTIC IMAGING REPORT ---
PROCEDURE: US NONVASCULAR EXTREMITY-RIGHT INDICATION: R/O ABSCESS TECHNIQUE: Saeed scale and color Doppler ultrasound. COMPARISON: None. FINDINGS: There is subcutaneous fluid collection in the proximal calf medially internal echoes but no evidence of encapsulation or peripheral increased vascularity. Incidental note is made of a nonocclusive thrombus of the distal greater saphenous vein. IMPRESSION: 1. Post-traumatic subcutaneous edema versus hematoma of the proximal calf medially, without encapsulation to suggest an abscess 2. Nonocclusive thrombus of the distal right greater saphenous vein 3. Results discussed with Dr. Escalona
[2017-01-09 18:36] VITALS: BP 137/78
[2017-01-09 23:25] VITALS: BP 133/72
[2017-01-10] VITALS (11 sets, daily range): BP systolic 119–149; BP diastolic 64–79
--- NOTE | 2017-01-10 15:39 | Progress Note ---
Subjective General Note Date: January 10, 2017 Admission Date: January 07, 2017 Hospital Day: 4 PCP: Tony Eric M.D. Status: Inpatient, ACU Advanced Directive: FULL CODE Room: 201 Admission History: The patient is a 26-year-old white male with a significant past medical history of obesity who presented to [facility] emergency department on the day of admission secondary to complaints of painful, swollen, erythematous right lower leg. [facility] ER evaluation was consistent with cellulitis of the right lower leg-rule out necrotizing fasciitis. Secondary to the above the patient was seen in consultation by Dr. Acevedo and admitted by Kendall Escalona M.D. (hospitalist service) for further evaluation and treatment. For other history present illness, past medical history, family history, social history, review of systems, and admission physical examination please see the patient's history and physical examination and ER visit note in the patient's medical record. Subjective: The patient states he is doing better today. Persistent erythema and pain of lower leg but improved since chest pain. Patient states he has done well with mastering insulin administration. Pain more severe with ambulation. Patient requests: None Medications and Allergies Medications Current Medications Sig/Viviana Start time Last Medication Dose Route Stop Time Status Admin Clindamycin 50 ML Q8HR 01/09 1400 AC 01/10 Phosphate/Dextrose IV 1322 Vancomycin HCl 1,250 MG Q6H 01/08 2000 AC 01/10 Sodium Chloride 250 ML IV 1425 Ferrous Sulfate 325 MG BIDWC 01/08 1800 AC 01/10 PO 0812 Piperacillin Sod/ 4.5 GM Q6HR 01/08 1800 AC 01/10 Tazobactam Sod IV 1137 Sodium Chloride 100 ML Enoxaparin Sodium 40 MG DAILY 01/08 1330 AC 01/10 SC 0813 Insulin Glargine 10 UNITS QAM 01/08 0900 AC 01/10 SC 0812 Insulin Human Lispro See Dose ACHS 01/07 1630 AC 01/10 Insts (1) SC 1137 Vancomycin HCl See Dose .[PER PHARMACY] 01/07 1345 AC Insts (2) IV Acetaminophen 650 MG Q6H PRN 01/07 1330 AC 01/10 PO 0215 Hydromorphone HCl 1 MG Q1H PRN 01/07 1330 AC 01/10 IV 1238 Ondansetron HCl 4 MG Q6H PRN 01/07 1330 AC 01/10 IV 0028 Sodium Chloride 1,000 ML ASDIRECTED 01/07 1330 AC 01/10 IV 0830 Famotidine/Sodium 50 ML Q12HR 01/07 1328 01/10 Chloride IV 0812 Dose Instructions: (1)Insulin Human Lispro: MEDIUM DOSE SLIDING SCALE (2)Vancomycin HCl: DOSING PER PHARMACY Allergies Coded Allergies: NKA (01/07/17) Physical Exam Vital Signs / I&Os Vital Signs Date Time Temp Pulse Resp B/P Pulse O2 O2 Flow FiO2 Ox Delivery Rate 01/10 1438 98.4 86 18 119/78 100 Room Air 01/10 1126 98.1 86 18 144/75 98 Room Air 01/10 0657 100.0 88 18 129/76 98 Room Air 01/10 0209 98.2 77 15 144/75 97 Room Air 01/10 0043 Room Air 01/09 2325 99.0 80 17 133/72 99 Room Air 01/09 1836 100.6 103 20 137/78 100 Room Air 01/09 1630 Room Air I&O 01/10 0000 01/09 1600 01/09 0800 Intake Total 2656 2160 1422 Output Total 1300 1400 850 Balance 1356 760 572 General Appearance Alert, Oriented X3, Cooperative, No acute distress Lungs Clear to auscultation, Normal air movement Cardiovascular Regular rate and rhythm, Normal S1 and S2 Extremities No cyanosis, No clubbing, fluctuant area present over previous wound site. Neurological Cranial nerves intact, No lateralizing signs Psych/Mental Status Mental status normal, Mood normal LAB Results Laboratory Tests 01/10 01/10 1324 0555 Hematology WBC (4.5 - 11.5 K/uL) 6.6 RBC (4.50 - 5.90 M/uL) 5.28 Hgb (13.5 - 17.5 gm/dL) 10.8 Hct (41.0 - 53.0 %) 34.8 MCV (80 - 100 fL) 66 MCH (26 - 34 pg) 21 RDW (11.6 - 14.8 %) 16.3 Neut % (Auto) (50 - 75 %) 79 Lymph % (Auto) (25 - 40 %) 15 [place] % (Auto) (3 - 14 %) 6 Eos % (Auto) (0 - 4 %) 0 Baso % (Auto) (0 - 2 %) 0 Band Neutrophils % (0 - 8 %) 0 Metamyelocytes % (0 - 1 %) 0 Myelocytes (0 - 1 %) 0 Other Cell Type 0 Plt Count, EDTA (150 - 400 K/uL) 134 RBC Morphology 1+ ANISOCYTOSIS PUBS MCHC (31 - 37 g/dL) 31 Toxicology Vancomycin Trough (10.0 - 20.0 ug/mL) 10.3 Microbiology Date/Time Procedure - Status Source Growth 01/10 1310 Fungal Culture - RECD LEG 01/10 1310 Fungal Smear - RECD LEG 01/10 1310 Acid Fast Bacilli (AFB) Sensitivity - RECD LEG 01/10 1310 Mycobacterium gordanae DNA Probe - RECD LEG 01/10 1310 Mycobacterium kansasii DNA Probe - RECD LEG 01/10 1310 Mycobact. avium Complex DNA Probe - RECD LEG 01/10 1310 M.tuberculosis Complex DNA Probe - RECD LEG 01/10 1310 Acid Fast Bacilli Culture - RECD LEG 01/10 1310 Acid Fast Bacilli Smear - RECD LEG 01/10 1310 Anaerobic Culture - RES BODY FLUID 01/10 1310 Body Fluid Culture - RES BODY FLUID 01/10 1310 Gram Stain - RES BODY FLUID Assessment and Plan Problem List 1. Cellulitis Plan -Patient with persistent cellulitis -Abscess has developed at site of previous wound -Orthopedics to aspirate/I&D abscess site -Continue antibiotics 2. Diabetes mellitus Status Acute Onset Date Unknown Plan -Blood glucose improved -Persistent mild hyperglycemia -Increase Lantus insulin to 20 units subcutaneous daily -Monitor -Outpatient diabetic education 3. Iron deficiency anemia Status Acute Onset Date Unknown Plan -Patient with findings of iron deficiency anemia -Ferrous sulfate 325 mg by mouth twice a day -We'll recommend outpatient GI evaluation Current status: Fair, stable Anticipated discharge date: Anticipated discharge 2-3 days Anticipated discharge placement: Home Patient care time: Time in chart review, patient interview, physical exam, CPOE, and care documentation: 25 mins Visit to patient today: 1 Complexity of care: Moderate DVT prophylaxis: Lovenox E&M Codes Rounding: Inpt-Moderate/10315
--- NOTE | 2017-01-10 19:16 | Progress Note ---
Late Entry Date/Time Late Entry Date and Time LATE ENTRY Date of visit: 01/10/17 Time of visit: 13:00 Subjective General Pain and tenderness continue over the medial right leg. CT scan and ultrasound were negative for abscess. Physical Exam Vital Signs / I&Os Vital Signs Date Time Temp Pulse Resp B/P Pulse O2 O2 Flow FiO2 Ox Delivery Rate 01/10 1824 98.4 105 18 149/72 100 Room Air 01/10 1609 Room Air 01/10 1438 98.4 86 18 119/78 100 Room Air 01/10 1126 98.1 86 18 144/75 98 Room Air 01/10 0657 100.0 88 18 129/76 98 Room Air 01/10 0209 98.2 77 15 144/75 97 Room Air 01/10 0043 Room Air 01/09 2325 99.0 80 17 133/72 99 Room Air I&O 01/09 0800 01/09 1600 01/10 0000 Intake Total 1422 2160 2656 Output Total 850 1400 1300 Balance 781 933 6760 General Appearance Alert, Oriented X3, Cooperative, Mild distress Extremities Very tender over a bulging fluctuant area of the right leg next to the initial abraision. Most of the red rash is gone. however he is still painful over the bulging area which has become obvious as surrounding swelling went down LAB Results Laboratory Tests 01/10 01/10 0555 1324 Hematology WBC (4.5 - 11.5 K/uL) 6.6 RBC (4.50 - 5.90 M/uL) 5.28 Hgb (13.5 - 17.5 gm/dL) 10.8 Hct (41.0 - 53.0 %) 34.8 MCV (80 - 100 fL) 66 MCH (26 - 34 pg) 21 RDW (11.6 - 14.8 %) 16.3 Neut % (Auto) (50 - 75 %) 79 Lymph % (Auto) (25 - 40 %) 15 [place] % (Auto) (3 - 14 %) 6 Eos % (Auto) (0 - 4 %) 0 Baso % (Auto) (0 - 2 %) 0 Band Neutrophils % (0 - 8 %) 0 Metamyelocytes % (0 - 1 %) 0 Myelocytes (0 - 1 %) 0 Other Cell Type 0 Plt Count, EDTA (150 - 400 K/uL) 134 RBC Morphology 1+ ANISOCYTOSIS PUBS MCHC (31 - 37 g/dL) 31 Toxicology Vancomycin Trough (10.0 - 20.0 ug/mL) 10.3 Microbiology Date/Time Procedure - Status Source Growth 01/10 131 Fungal Culture - RECD LEG 01/10 1310 Fungal Smear - RECD LEG 01/10 1310 Acid Fast Bacilli (AFB) Sensitivity - RECD LEG 01/10 1310 Mycobacterium gordanae DNA Probe - RECD LEG 01/10 1310 Mycobacterium kansasii DNA Probe - RECD LEG 01/10 1310 Mycobact. avium Complex DNA Probe - RECD LEG 01/10 1310 M.tuberculosis Complex DNA Probe - RECD LEG 01/10 1310 Acid Fast Bacilli Culture - RECD LEG 01/10 1310 Acid Fast Bacilli Smear - RECD LEG 01/10 1310 Anaerobic Culture - RES BODY FLUID 01/10 1310 Body Fluid Culture - RES BODY FLUID 01/10 1310 Gram Stain - RES BODY FLUID Plan Assessment With the patients consent, the right leg fluctuant area was aspirated for 2.5 ml of lewis pus. this was sent for aerobic and anaerobic culture, fungal culture and AFB culture. Plan Follow the culture results. I agree with keeping him on the vancomycin, Zosyn, and clindamycin at this time. I told him that I would do an incision and drainage of the abscess space under local anesthesia. The patient consented to this.
--- NOTE | 2017-01-10 20:52 | Postoperative Progress Note ---
Postop Progress Note Preoperate Diagnosis: abscess right leg Postoperative Diagnosis: same Surgeon: Maninder Acevedo MD Anesthesia: MAC and local lidocaine Findings: abscess in subcutaneous tissue Procedure: incision and drainage Complications? No Description of Complications: N/A Condition: Improved EBL: 75ml Drain(s): Page Blood Administered: 0 Specimen(s) removed? No Grafts or Implants? No Graft/Implant type: N/A . (See nursing notes for details of grafts/implants) Procedure - OPERATIVE NOTE The patient was brought to the OR and his leg was prepped with alcohol. He was given mild sedation and the local lidocaine was injected around the planned incision. The leg was preppep and draped. A timeout was held. A longitudinal incision was made about five centimeters long over the abscess into the subcutaneous tissue and pus welled up out of the wound apparently under pressure. We sucked the cavity out. Then we irrigated the cavity out. Finally we put two page drains into the wound. A sterile absorbent dressing was applied to the wound. The patient was brought from the operating room in good condition
[2017-01-11 03:43] VITALS: BP 136/65
--- NOTE | 2017-01-11 06:29 | Progress Note ---
Subjective General Note Date: January 11, 2017 Admission Date: January 07, 2017 Hospital Day: 5 PCP: Tony Eric M.D. Status: Inpatient, ACU Advanced Directive: FULL CODE Room: 201 Admission History: The patient is a 26-year-old white male with a significant past medical history of obesity who presented to [facility] emergency department on the day of admission secondary to complaints of painful, swollen, erythematous right lower leg. [facility] ER evaluation was consistent with cellulitis of the right lower leg-rule out necrotizing fasciitis. Secondary to the above the patient was seen in consultation by Dr. Acevedo and admitted by Kendall Escalona M.D. (hospitalist service) for further evaluation and treatment. For other history present illness, past medical history, family history, social history, review of systems, and admission physical examination please see the patient's history and physical examination and ER visit note in the patient's medical record. Subjective: Patient states he is doing significantly better today. Persistent pain but improved. No other complaints at this time. Patient requests: None Medications and Allergies Medications Current Medications Sig/Viviana Start time Last Medication Dose Route Stop Time Status Admin Famotidine/Sodium 50 ML Q12HR 01/11 0900 UNV Chloride IV Insulin Glargine 10 UNITS QAM 01/11 0900 UNV SC Insulin Human Lispro See Dose ACHS 01/11 0730 UNV Insts (1) SC Piperacillin Sod/ 4.5 GM Q6HR / 0600 UNV Tazobactam Sod IV Sodium Chloride 100 ML Acetaminophen 650 MG Q6H PRN 01/11 0530 UNV PO Hydromorphone HCl 1 MG Q1H PRN 01/11 0530 UNV IV Ondansetron HCl 4 MG Q6H PRN 01/11 0530 UNV IV Clindamycin 50 ML Q8HR / 1400 AC / Phosphate/Dextrose IV 0524 Vancomycin HCl 1,250 MG Q6H 01/08 2000 AC 01/11 Sodium Chloride 250 ML IV 0201 Ferrous Sulfate 325 MG BIDWC 01/08 1800 AC / PO 1748 Enoxaparin Sodium 40 MG DAILY 01/08 1330 AC 01/10 SC 0813 Vancomycin HCl See Dose .[PER PHARMACY] 01/07 1345 AC Insts (2) IV Sodium Chloride 1,000 ML ASDIRECTED 01/07 1330 r 07/ IV 0605 Famotidine/Sodium 50 ML Q12HR 01/07 1328 AC 01/10 Chloride IV 01/11 0859 2214 Dose Instructions: (1)Insulin Human Lispro: MEDIUM DOSE SLIDING SCALE (2)Vancomycin HCl: DOSING PER PHARMACY Allergies Coded Allergies: NKA (01/07/17) Physical Exam Vital Signs / I&Os Vital Signs Date Time Temp Pulse Resp B/P Pulse O2 O2 Flow FiO2 Ox Delivery Rate 01/11 0343 98.2 90 21 136/65 97 Room Air / 2249 99.0 91 21 129/64 96 Room Air / 2208 98.4 92 21 138/68 99 Room Air 07/ 2140 98.4 90 21 135/71 99 Room Air 07/ 2125 98.4 90 21 135/71 98 Room Air / 2125 98.4 91 21 134/79 98 Room Air / 2110 98.4 88 21 125/67 98 Room Air /5 99.0 89 21 132/65 98 Room Air /5 91 21 106/59 100 /03 2029 90 18 106/46 100 /03 2024 90 15 117/66 100 /03 2019 92 13 118/60 100 /03 2019 Room Air 01/10 2019 99.0 92 14 123/64 99 / 1824 98.4 105 18 149/72 100 Room Air 01/10 1609 Room Air 01/10 1438 98.4 86 18 119/78 100 Room Air 01/10 1126 98.1 86 18 144/75 98 Room Air / 0657 100.0 88 18 129/76 98 Room Air I&O 01/11 0000 /03 1600 01/10 0800 Intake Total 2892 440 1806 Output Total 400 2250 1200 Balance 2492 -1810 606 General Appearance Alert, Oriented X3, Cooperative, No acute distress Lungs Clear to auscultation, Normal air movement Cardiovascular Regular rate and rhythm, Normal S1 and S2, No murmurs, gallops, rubs Extremities No cyanosis, No clubbing, Wound not Examined. Dressing in Place. See Orthopedic Notes. Neurological Cranial nerves intact, Strength 5/5 x4 ext's, No lateralizing signs Psych/Mental Status Mental status normal, Mood normal LAB Results Laboratory Tests 01/10 1324 Toxicology Vancomycin Trough (10.0 - 20.0 ug/mL) 10.3 Microbiology Date/Time Procedure - Status Source Growth 01/10 1310 Fungal Culture - RECD LEG 01/10 1310 Fungal Smear - RECD LEG 01/10 1310 Acid Fast Bacilli (AFB) Sensitivity - RECD LEG 01/10 1310 Mycobacterium gordanae DNA Probe - RECD LEG 01/10 1310 Mycobacterium kansasii DNA Probe - RECD LEG 01/10 1310 Mycobact. avium Complex DNA Probe - RECD LEG 01/10 1310 M.tuberculosis Complex DNA Probe - RECD LEG 01/10 1310 Acid Fast Bacilli Culture - RECD LEG 01/10 1310 Acid Fast Bacilli Smear - RECD LEG 01/10 1310 Anaerobic Culture - RES BODY FLUID 01/10 1310 Body Fluid Culture - RES BODY FLUID 01/10 1310 Gram Stain - RES BODY FLUID Assessment and Plan Problem List 1. Cellulitis Plan -Improved -Continue present antimicrobial therapy -Possible discharge 1-2 days with improved status 2. Abscess Status Acute Onset Date Unknown Plan -Status post I&D right lower leg abscess -Follow per orthopedics -Await C&S from abscess I&D -Continue Zosyn/vancomycin. DC clindamycin -Monitor 3. SIRS (systemic inflammatory response syndrome) Plan -Resolved 4. Diabetes mellitus Status Acute Onset Date Unknown Plan -Blood sugars much improved -Continue present therapy -Outpatient follow-up for diabetic education 5. Iron deficiency anemia Status Acute Onset Date Unknown Plan -Patient with findings of iron deficiency anemia -H&H stable -Continue ferrous sulfate 325 mg by mouth twice a day Current status: Fair, improved Anticipated discharge date: Anticipated discharge 1-2 days Anticipated discharge placement: Home Patient care time: Time in chart review, patient interview, physical exam, CPOE, and care documentation: 25 mins Visit to patient today: 1 Complexity of care: Moderate DVT prophylaxis: Lovenox E&M Codes Rounding: Inpt-Moderate/49205
[2017-01-11 07:11] VITALS: BP 120/60
[2017-01-11 10:34] VITALS: BP 128/67
--- NOTE | 2017-01-11 12:30 | Progress Note ---
Subjective General Better, less pain and swelling today VSS Afeb C/S + for strep which should be sensitive to PCN. Leg has 2+ edema and erythema yet and quite a lot of bloody drainage. No other c /o and no more fever, chills or sweats. Bandage changed and new dry gauze applied. Cleocin ordered by hospitalist. DC Piperacillin and Vancocin. PCN added.
[2017-01-11 14:20] VITALS: BP 145/75
[2017-01-11 18:10] VITALS: BP 133/70
[2017-01-11 22:55] VITALS: BP 148/72
[2017-01-12 03:49] VITALS: BP 132/69
[2017-01-12 06:41] VITALS: BP 128/71
--- NOTE | 2017-01-12 08:27 | Progress Note ---
Subjective General The patient is a 26-year-old white male with a significant past medical history of obesity who presented to [facility] emergency department on the day of admission secondary to complaints of painful, swollen, erythematous right lower leg. [facility] ER evaluation was consistent with cellulitis of the right lower leg-rule out necrotizing fasciitis. Secondary to the above the patient was seen in consultation by Dr. Acevedo and admitted by Kendall Escalona M.D. (hospitalist service) for further evaluation and treatment. Pain in right leg controlled, no fever or chills, no chest pain or dyspnea, no nausea or vomiting, slept well, still has drainage from right leg wound Review of system: Cardiac: Negative for chest pain or dyspnea GI: Negative for nausea or vomiting Constitutional: Negative for fever or chills Physical Exam Vital Signs / I&Os Vital Signs Date Time Temp Pulse Resp B/P Pulse O2 O2 Flow FiO2 Ox Delivery Rate 01/12 0641 99.0 82 18 128/71 98 Room Air 0.0 01/12 0349 99.9 89 18 132/69 98 Room Air 01/11 2255 100.4 91 18 148/72 100 Room Air 07/ 1810 98.2 86 18 133/70 99 Room Air 07 1541 Room Air 07/04 1420 100.0 87 18 145/75 100 Room Air 07/04 1034 99.0 86 20 128/67 99 Room Air 0.0 I&O 01/12 0000 07/04 1600 01/11 0800 Intake Total 3415 244 9912 Output Total 2150 900 1900 Balance -389 -20 -790 General Appearance No acute distress Lungs Clear to auscultation Neck Supple, No masses Cardiovascular Regular rate and rhythm, Normal S1 and S2, No murmurs, gallops, rubs Abdomen Normal bowel sounds, Soft, No tenderness Extremities No edema (right leg surgically dressed) Skin No Rashes (as above) Psych/Mental Status Mental status normal LAB Results Laboratory Tests 01/12 01/12 0540 UNK Chemistry Plasma Sodium (136 - 145 mmol/L) 140 Plasma Potassium (3.5 - 5.1 mmol/L) 3.4 Plasma Chloride (98 - 107 mmol/L) 104 CO2 (Enzymatic) (21 - 32 mmol/L) 24 BUN (7 - 18 mg/dL) 9 Creatinine (0.6 - 1.3 mg/dL) 0.7 Est GFR ( Amer) (mL/min) >60 Est GFR (Non-Af Amer) (mL/min) >60 Glucose (70 - 110 mg/dL) 130 Plasma Calcium (8.5 - 10.1 mg/dL) 7.8 Hematology WBC (4.5 - 11.5 K/uL) 9.2 RBC (4.50 - 5.90 M/uL) 4.61 Hgb (13.5 - 17.5 gm/dL) 9.5 Hct (41.0 - 53.0 %) 30.5 MCV (80 - 100 fL) 66 MCH (26 - 34 pg) 21 RDW (11.6 - 14.8 %) 16.3 Neut % (Auto) (50 - 75 %) 68 Lymph % (Auto) (25 - 40 %) 22 [place] % (Auto) (3 - 14 %) 5 Eos % (Auto) (0 - 4 %) 3 Baso % (Auto) (0 - 2 %) 0 Band Neutrophils % (0 - 8 %) 2 Metamyelocytes % (0 - 1 %) 0 Myelocytes (0 - 1 %) 0 Other Cell Type 0 Plt Count, EDTA (150 - 400 K/uL) 229 RBC Morphology (69566 A) 2+ MICROCYTOSIS PUBS MCHC (31 - 37 g/dL) 31 ESR Westergren (0 - 15 mm/hr) 79 Cancelled Assessment and Plan Problem List 1. Abscess of right leg Plan contineu keflex and Clindamycin, wound managed by ortho 2. Diabetes mellitus Status Acute Onset Date Unknown Plan controlled on long acting Insulin 3. Iron deficiency anemia Status Acute Onset Date Unknown Plan relatively stable, will monitor 4. SIRS (systemic inflammatory response syndrome)
--- NOTE | 2017-01-12 08:27 | Progress Note ---
Subjective General The patient is a 26-year-old white male with a significant past medical history of obesity who presented to [facility] emergency department on the day of admission secondary to complaints of painful, swollen, erythematous right lower leg. [facility] ER evaluation was consistent with cellulitis of the right lower leg-rule out necrotizing fasciitis. Secondary to the above the patient was seen in consultation by Dr. Acevedo and admitted by Kendall Escalona M.D. (hospitalist service) for further evaluation and treatment. Pain in right leg controlled, no fever or chills, no chest pain or dyspnea, no nausea or vomiting, slept well, still has drainage from right leg wound Review of system: Cardiac: Negative for chest pain or dyspnea GI: Negative for nausea or vomiting Constitutional: Negative for fever or chills Physical Exam Vital Signs / I&Os Vital Signs Date Time Temp Pulse Resp B/P Pulse O2 O2 Flow FiO2 Ox Delivery Rate 01/12 0641 99.0 82 18 128/71 98 Room Air 0.0 01/12 0349 99.9 89 18 132/69 98 Room Air 01/11 2255 100.4 91 18 148/72 100 Room Air 07/ 1810 98.2 86 18 133/70 99 Room Air 07 1541 Room Air 07/04 1420 100.0 87 18 145/75 100 Room Air 07/04 1034 99.0 86 20 128/67 99 Room Air 0.0 I&O 01/12 0000 07/04 1600 01/11 0800 Intake Total 3280 213 3862 Output Total 2150 900 1900 Balance -389 -20 -790 General Appearance No acute distress Lungs Clear to auscultation Neck Supple, No masses Cardiovascular Regular rate and rhythm, Normal S1 and S2, No murmurs, gallops, rubs Abdomen Normal bowel sounds, Soft, No tenderness Extremities No edema (right leg surgically dressed) Skin No Rashes (as above) Psych/Mental Status Mental status normal LAB Results Laboratory Tests 01/12 01/12 0540 UNK Chemistry Plasma Sodium (136 - 145 mmol/L) 140 Plasma Potassium (3.5 - 5.1 mmol/L) 3.4 Plasma Chloride (98 - 107 mmol/L) 104 CO2 (Enzymatic) (21 - 32 mmol/L) 24 BUN (7 - 18 mg/dL) 9 Creatinine (0.6 - 1.3 mg/dL) 0.7 Est GFR ( Amer) (mL/min) >60 Est GFR (Non-Af Amer) (mL/min) >60 Glucose (70 - 110 mg/dL) 130 Plasma Calcium (8.5 - 10.1 mg/dL) 7.8 Hematology WBC (4.5 - 11.5 K/uL) 9.2 RBC (4.50 - 5.90 M/uL) 4.61 Hgb (13.5 - 17.5 gm/dL) 9.5 Hct (41.0 - 53.0 %) 30.5 MCV (80 - 100 fL) 66 MCH (26 - 34 pg) 21 RDW (11.6 - 14.8 %) 16.3 Neut % (Auto) (50 - 75 %) 68 Lymph % (Auto) (25 - 40 %) 22 [place] % (Auto) (3 - 14 %) 5 Eos % (Auto) (0 - 4 %) 3 Baso % (Auto) (0 - 2 %) 0 Band Neutrophils % (0 - 8 %) 2 Metamyelocytes % (0 - 1 %) 0 Myelocytes (0 - 1 %) 0 Other Cell Type 0 Plt Count, EDTA (150 - 400 K/uL) 229 RBC Morphology ([id number] A) 2+ MICROCYTOSIS PUBS MCHC (31 - 37 g/dL) 31 ESR Westergren (0 - 15 mm/hr) 79 Cancelled Assessment and Plan Problem List 1. Abscess of right leg Plan contineu keflex and Clindamycin, wound managed by ortho 2. Diabetes mellitus Status Acute Onset Date Unknown Plan controlled on long acting Insulin 3. Iron deficiency anemia Status Acute Onset Date Unknown Plan relatively stable, will monitor 4. SIRS (systemic inflammatory response syndrome)
[2017-01-12 10:49] VITALS: BP 123/76
--- NOTE | 2017-01-12 12:55 | DIAGNOSTIC IMAGING REPORT ---
PROCEDURE: US VENOUS - RIGHT EXT INDICATION: Follow up thrombosis lower leg TECHNIQUE: Duplex sonography of the deep venous system in the right lower extremity was performed. Compression and augmentation techniques were used. COMPARISON: Right lower extremity venous duplex ultrasound 01/09/2017 FINDINGS: Normal compression of the common femoral, superficial femoral, popliteal, peroneal, and posterior tibial veins. Normal augmentation. There is no evidence of deep venous thrombosis. No change in the nonocclusive thrombosis of the distal greater saphenous vein. Markedly improved subcutaneous fluid collection/hematoma. IMPRESSION: 1. No evidence of a right lower extremity DVT 2. No significant change in the nonocclusive thrombus of the distal right greater saphenous vein 3. Resolving post-traumatic subcutaneous edema versus hematoma 4. Results discussed with Dr. Malloy
--- NOTE | 2017-01-12 13:46 | Progress Note ---
Subjective General VSS Tmax 100.4 WBC 9.2 Hgb 9.5 ESR 79 Calcium 7.8 K 3.4 Better with less drainage and edema. Compartments are soft. Recheck labs in am and continue IV PCN.
[2017-01-12 14:35] VITALS: BP 138/91
[2017-01-12 18:23] VITALS: BP 123/75
[2017-01-12 22:40] VITALS: BP 135/72
[2017-01-13] VITALS (7 sets, daily range): BP systolic 123–160; BP diastolic 72–84
--- NOTE | 2017-01-13 08:12 | Progress Note ---
Subjective General VSS Afeb WBC 8.0 ESR >140 His leg is still 4+ tender and he has some mild pain with knee ROM. There is a lot of drainage from the leg wound. Plan for knee scope/washout and I/D of leg wound today.
--- NOTE | 2017-01-13 08:27 | Progress Note ---
Subjective General The patient is a 26-year-old white male with a significant past medical history of obesity who presented to [facility] emergency department on the day of admission secondary to complaints of painful, swollen, erythematous right lower leg. [facility] ER evaluation was consistent with cellulitis of the right lower leg-rule out necrotizing fasciitis. Secondary to the above the patient was seen in consultation by Dr. Acevedo and admitted by Kendall Escalona M.D. (hospitalist service) for further evaluation and treatment. Still has dranage from wound, and painful, no fever or chills, no dyspnea or cp, no nausea or vomiting, was able to take few steps with cruchtes Review of system: Constitutional: Negative for fever or chills MK S: Still have pain in the right leg and drainage from the right leg wound Cardiac: Negative for dyspnea chest pain Physical Exam Vital Signs / I&Os Vital Signs Date Time Temp Pulse Resp B/P Pulse O2 O2 Flow FiO2 Ox Delivery Rate 01/13 0650 97.5 72 18 123/74 98 Room Air / 0235 98.8 80 16 126/84 97 Room Air 07/05 2356 0.0 07/05 2240 99.0 87 20 135/72 98 Room Air 07/05 1823 97.9 82 16 123/75 100 Room Air 0.0 07/05 1540 Room Air 0.0 07/05 1435 98.8 77 18 138/91 100 Room Air 07/05 1049 98.4 85 18 123/76 98 Room Air 0.0 07/05 0900 Room Air I&O / 0000 07/05 1600 07/05 0800 Intake Total 3250 1261 1086 Output Total 780 2575 1350 Balance 2470 -1314 -264 General Appearance No acute distress Neck Supple, No masses Cardiovascular Regular rate and rhythm, Normal S1 and S2, No murmurs, gallops, rubs Abdomen Normal bowel sounds, Soft, No tenderness Extremities No edema (right calf surgically dressed) Skin No Rashes Neurological Normal speech, Normal tone Psych/Mental Status Mental status normal, Mood normal LAB Results Laboratory Tests 01/13 01/13 0550 UNK Chemistry Plasma Sodium (136 - 145 mmol/L) 141 Plasma Potassium (3.5 - 5.1 mmol/L) 3.5 Plasma Chloride (98 - 107 mmol/L) 105 CO2 (Enzymatic) (21 - 32 mmol/L) 26 BUN (7 - 18 mg/dL) 10 Creatinine (0.6 - 1.3 mg/dL) 0.7 Est GFR ( Amer) (mL/min) >60 Est GFR (Non-Af Amer) (mL/min) >60 Glucose (70 - 110 mg/dL) 95 Plasma Calcium (8.5 - 10.1 mg/dL) 7.8 Hematology WBC (4.5 - 11.5 K/uL) 8.0 RBC (4.50 - 5.90 M/uL) 4.62 Hgb (13.5 - 17.5 gm/dL) 9.7 Hct (41.0 - 53.0 %) 30.3 MCV (80 - 100 fL) 66 MCH (26 - 34 pg) 21 RDW (11.6 - 14.8 %) 17.0 Neut % (Auto) (50 - 75 %) 62.2 Lymph % (Auto) (25 - 40 %) 26.0 [place] % (Auto) (3 - 14 %) 9.3 Eos % (Auto) (0 - 4 %) 2.0 Baso % (Auto) (0 - 2 %) 0.5 Plt Count, EDTA (150 - 400 K/uL) 227 PUBS MCHC (31 - 37 g/dL) 32 ESR Westergren (0 - 15 mm/hr) > 140 Cancelled Assessment and Plan Problem List 1. Abscess of right leg Plan will stop clindamaycin continue Keflex 2. New onset type 2 diabetes mellitus Plan will change lantus insulin to metformin 3. B12 deficiency Status Acute Onset Date Unknown Plan start vitamin B12 supplement 4. Iron deficiency anemia Status Acute Onset Date Unknown Plan stable will monitor
--- NOTE | 2017-01-13 14:33 | Postoperative Progress Note ---
Postop Progress Note Preoperate Diagnosis: Infection right leg, possible septic arthritis right knee. Postoperative Diagnosis: Infection right leg. Surgeon: Juventino Wilson MD Anesthesia: General ETT Findings: Infection right leg. Arthritis right knee. Procedure: The patient was taken to the OR where he was given GA.. A tourniquet was applied to the right leg and the leg placed in the leg ortiz. The leg was prepped and draped then a small incision was made at the joint line of the knee and the scope inserted. C/S was obtained. Inspection of the knee showed no pus and some moderate chondromalacia of the patella. The ACL was in good condition. The rest of the articular cartilage showed only mild changes and the menisci were in good condition. No loose bodies were seen and the knee was thoroughly irrigated before removing the scope and closing with a single 3-0 nylon suture. The anteromedial wound was then thoroughly, bluntly probed and there were no loculations or additional abscess cavities found. The wound was irrigated with 2.5 liters of fluid then packed open with Nugauze and the incision and the wound covered with Xeroform, gauze and ABD pads. He was wrapped with loosely applied sterile webril and an Fercho bandage, then he was awakened and taken to the RR in stable condition. Complications? No Condition: Stable EBL: 20cc Drain(s): Nugauze packing Blood Administered: 0 Specimen(s) removed? No Grafts or Implants? No . (See nursing notes for details of grafts/implants)
[2017-01-14 02:06] VITALS: BP 132/74
[2017-01-14 06:40] VITALS: BP 117/50
--- NOTE | 2017-01-14 08:29 | Progress Note ---
Subjective General Afeb WBC 8.7 Hgb 10.3 ESR 73 FBS 200 Plan to continnue with IV PCN for now.
--- NOTE | 2017-01-14 08:29 | Progress Note ---
Subjective General Afeb WBC 8.7 Hgb 10.3 ESR 73 FBS 200 Plan to continnue with IV PCN for now.
--- NOTE | 2017-01-14 09:30 | Progress Note ---
Subjective General The patient is a 26-year-old white male with a significant past medical history of obesity who presented to [facility] emergency department on the day of admission secondary to complaints of painful, swollen, erythematous right lower leg. [facility] ER evaluation was consistent with cellulitis of the right lower leg-rule out necrotizing fasciitis. Secondary to the above the patient was seen in consultation by Dr. Acevedo and admitted by Kendall Escalona M.D. (hospitalist service) for further evaluation and treatment. No drainaged from wound but pain flared up after surgery, no fever had chills, no cp or dyspnea no nausea or vomiting Review of system: MK S: Pain in the right leg decreased drainage from the wound Respiratory: Negative for chest pain or dyspnea GI: Negative for nausea or vomiting Physical Exam Vital Signs / I&Os Vital Signs Date Time Temp Pulse Resp B/P Pulse O2 O2 Flow FiO2 Ox Delivery Rate 01/14 0640 97.5 65 18 117/50 98 / 0206 97.5 60 14 132/74 97 Room Air 07/ 2207 97.7 74 16 142/72 95 07/06 2138 Room Air 07/06 1930 98.1 07/06 1703 95 16 156/81 96 07/06 1634 97 16 160/81 96 07/06 1615 98.2 84 16 157/73 94 07/06 1504 98.4 85 13 155/81 99 07/06 1501 97.9 89 14 144/83 99 07/06 1450 85 12 153/78 98 07/06 1441 83 13 158/85 98 07/06 1434 86 13 143/74 99 07/06 1429 98.2 87 16 150/82 98 nc 2.0 07/06 1031 Room Air 07/06 0950 98.6 74 18 128/73 100 Room Air I&O 07/07 0000 07/06 1600 07/06 0800 Intake Total 2126 3550 863 Output Total 2250 7900 1300 Balance -124 -5640 -437 General Appearance Alert, Oriented X3, No acute distress Lungs Clear to auscultation Neck Supple, No JVD Cardiovascular Regular rate and rhythm, Normal S1 and S2, No murmurs, gallops, rubs Abdomen Normal bowel sounds, Soft, No tenderness Extremities No edema (right leg surgically dressed) Skin No Rashes Psych/Mental Status Mental status normal LAB Results Laboratory Tests 01/14 01/14 0535 UNK Chemistry Plasma Sodium (136 - 145 mmol/L) 137 Cancelled Plasma Potassium (3.5 - 5.1 mmol/L) 4.5 Cancelled Plasma Chloride (98 - 107 mmol/L) 102 Cancelled CO2 (Enzymatic) (21 - 32 mmol/L) 26 Cancelled BUN (7 - 18 mg/dL) 11 Cancelled Creatinine (0.6 - 1.3 mg/dL) 0.7 Cancelled Est GFR ( Amer) (mL/min) >60 Cancelled Est GFR (Non-Af Amer) (mL/min) >60 Cancelled Glucose (70 - 110 mg/dL) 200 Cancelled Plasma Calcium (8.5 - 10.1 mg/dL) 8.7 Cancelled Hematology WBC (4.5 - 11.5 K/uL) 8.7 RBC (4.50 - 5.90 M/uL) 4.92 Hgb (13.5 - 17.5 gm/dL) 10.3 Hct (41.0 - 53.0 %) 32.7 MCV (80 - 100 fL) 67 MCH (26 - 34 pg) 21 RDW (11.6 - 14.8 %) 17.4 Neut % (Auto) (50 - 75 %) 75.4 Lymph % (Auto) (25 - 40 %) 18.3 [place] % (Auto) (3 - 14 %) 6.0 Eos % (Auto) (0 - 4 %) 0.1 Baso % (Auto) (0 - 2 %) 0.2 Plt Count, EDTA (150 - 400 K/uL) 333 RBC Morphology ([id number] A) 2+ MICROCYTOSIS PUBS MCHC (31 - 37 g/dL) 32 ESR Westergren (0 - 15 mm/hr) 73 Cancelled Microbiology Date/Time Procedure - Status Source Growth 01/13 1400 Deep Wound Culture - RES LEG 01/13 1400 Deep Wound Culture - RES LEG 01/13 1400 Gram Stain - RES LEG 01/13 1400 Deep Wound Culture - RES LEG 01/13 1400 Deep Wound Culture - RES LEG 01/13 1400 Gram Stain - RES LEG Assessment and Plan Problem List 1. Abscess of right leg Plan discharge home tomorrow after one more day of IV peniciline, 2. Diabetes mellitus Status Acute Onset Date Unknown Plan controlled on metformine 3. Iron deficiency anemia Status Acute Onset Date Unknown Plan stable, continue current meds 4. B12 deficiency Status Acute Onset Date Unknown Plan on Vitamin B12 supplement
--- NOTE | 2017-01-14 09:30 | Progress Note ---
Subjective General The patient is a 26-year-old white male with a significant past medical history of obesity who presented to [facility] emergency department on the day of admission secondary to complaints of painful, swollen, erythematous right lower leg. [facility] ER evaluation was consistent with cellulitis of the right lower leg-rule out necrotizing fasciitis. Secondary to the above the patient was seen in consultation by Dr. Acevedo and admitted by Kendall Escalona M.D. (hospitalist service) for further evaluation and treatment. No drainaged from wound but pain flared up after surgery, no fever had chills, no cp or dyspnea no nausea or vomiting Review of system: MK S: Pain in the right leg decreased drainage from the wound Respiratory: Negative for chest pain or dyspnea GI: Negative for nausea or vomiting Physical Exam Vital Signs / I&Os Vital Signs Date Time Temp Pulse Resp B/P Pulse O2 O2 Flow FiO2 Ox Delivery Rate 01/14 0640 97.5 65 18 117/50 98 / 0206 97.5 60 14 132/74 97 Room Air 07/ 2207 97.7 74 16 142/72 95 07/06 2138 Room Air 07/06 1930 98.1 07/06 1703 95 16 156/81 96 07/06 1634 97 16 160/81 96 07/06 1615 98.2 84 16 157/73 94 07/06 1504 98.4 85 13 155/81 99 07/06 1501 97.9 89 14 144/83 99 07/06 1450 85 12 153/78 98 07/06 1441 83 13 158/85 98 07/06 1434 86 13 143/74 99 07/06 1429 98.2 87 16 150/82 98 nc 2.0 07/06 1031 Room Air 07/06 0950 98.6 74 18 128/73 100 Room Air I&O 07/07 0000 07/06 1600 07/06 0800 Intake Total 2126 3550 863 Output Total 2250 7900 1300 Balance -124 -5260 -437 General Appearance Alert, Oriented X3, No acute distress Lungs Clear to auscultation Neck Supple, No JVD Cardiovascular Regular rate and rhythm, Normal S1 and S2, No murmurs, gallops, rubs Abdomen Normal bowel sounds, Soft, No tenderness Extremities No edema (right leg surgically dressed) Skin No Rashes Psych/Mental Status Mental status normal LAB Results Laboratory Tests 01/14 01/14 0535 UNK Chemistry Plasma Sodium (136 - 145 mmol/L) 137 Cancelled Plasma Potassium (3.5 - 5.1 mmol/L) 4.5 Cancelled Plasma Chloride (98 - 107 mmol/L) 102 Cancelled CO2 (Enzymatic) (21 - 32 mmol/L) 26 Cancelled BUN (7 - 18 mg/dL) 11 Cancelled Creatinine (0.6 - 1.3 mg/dL) 0.7 Cancelled Est GFR ( Amer) (mL/min) >60 Cancelled Est GFR (Non-Af Amer) (mL/min) >60 Cancelled Glucose (70 - 110 mg/dL) 200 Cancelled Plasma Calcium (8.5 - 10.1 mg/dL) 8.7 Cancelled Hematology WBC (4.5 - 11.5 K/uL) 8.7 RBC (4.50 - 5.90 M/uL) 4.92 Hgb (13.5 - 17.5 gm/dL) 10.3 Hct (41.0 - 53.0 %) 32.7 MCV (80 - 100 fL) 67 MCH (26 - 34 pg) 21 RDW (11.6 - 14.8 %) 17.4 Neut % (Auto) (50 - 75 %) 75.4 Lymph % (Auto) (25 - 40 %) 18.3 [place] % (Auto) (3 - 14 %) 6.0 Eos % (Auto) (0 - 4 %) 0.1 Baso % (Auto) (0 - 2 %) 0.2 Plt Count, EDTA (150 - 400 K/uL) 333 RBC Morphology ([id number] A) 2+ MICROCYTOSIS PUBS MCHC (31 - 37 g/dL) 32 ESR Westergren (0 - 15 mm/hr) 73 Cancelled Microbiology Date/Time Procedure - Status Source Growth 01/13 1400 Deep Wound Culture - RES LEG 01/13 1400 Deep Wound Culture - RES LEG 01/13 1400 Gram Stain - RES LEG 01/13 1400 Deep Wound Culture - RES LEG 01/13 1400 Deep Wound Culture - RES LEG 01/13 1400 Gram Stain - RES LEG Assessment and Plan Problem List 1. Abscess of right leg Plan discharge home tomorrow after one more day of IV peniciline, 2. Diabetes mellitus Status Acute Onset Date Unknown Plan controlled on metformine 3. Iron deficiency anemia Status Acute Onset Date Unknown Plan stable, continue current meds 4. B12 deficiency Status Acute Onset Date Unknown Plan on Vitamin B12 supplement
[2017-01-14 10:44] VITALS: BP 141/82
[2017-01-14 14:22] VITALS: BP 107/64
[2017-01-14 18:37] VITALS: BP 119/58
[2017-01-14 23:02] VITALS: BP 134/74
[2017-01-15 02:31] VITALS: BP 134/73
[2017-01-15 07:03] VITALS: BP 132/73
[2017-01-15] MEDS ORDERED: GLUCOPHAGE500 MG PO (08:59)
--- NOTE | 2017-01-15 09:06 | Discharge Summary ---
Discharge Summary Report Admit Date 01/07/17 Discharge Date 01/15/17 Admission Diagnosis 1-Cellulitis right leg 2- DM new 3-SIRS 4- Anemia Discharge Diagnosis 1-Abcess of righ leg 2- DM 3- Anemia Brief History The patient is a 26-year-old white male with a significant past medical history of obesity who presented to [facility] emergency department on the day of admission secondary to complaints of painful, swollen, erythematous right lower leg. [facility] ER evaluation was consistent with cellulitis of the right lower leg-rule out necrotizing fasciitis. Secondary to the above the patient was seen in consultation by Dr. Acevedo and admitted by Kendall Escalona M.D. (hospitalist service) for further evaluation and treatment. Hospital Course The patient was started on Vanco and Zosyn and was put on Lantus insulin. Ortho cousult was optained. Later on patient has to have incisiona and depritment and drainage because he developped abcess in that area. C/S showed Strep. sensitive to PCN, so antibiotis switched to keflex and clindamycin and then to PCN G. Becasue pt had a surge in ESR went through right knee arthroscopy which was unremarkable. Lantus insulin was switched to Metformin 5oomg bid and patient did well on it. He is doing fine now no drainage from wound, pain is improved no fever or chills, no nausea or vomiting. Discharge medications: PCN G and pain medication per Ortho. Also continue Metformine 500mg bid. Patient states has test strips and Glucometer at home to check his blood sugar twice a day. General Appearance No acute distress Lungs Clear to auscultation Cardiovascular Regular Rate, Normal S1, Normal S2, No murmurs Abdomen Normal bowel sounds, Soft, No tenderness Skin No Rashes Psych/Mental Status Mental status NL, Mood NL Lab/Imaging Laboratory Tests 01/15 0501 Chemistry Plasma Sodium (136 - 145 mmol/L) 142 Plasma Potassium (3.5 - 5.1 mmol/L) 3.5 Plasma Chloride (98 - 107 mmol/L) 105 CO2 (Enzymatic) (21 - 32 mmol/L) 29 BUN (7 - 18 mg/dL) 11 Creatinine (0.6 - 1.3 mg/dL) 0.8 Est GFR ( Amer) (mL/min) >60 Est GFR (Non-Af Amer) (mL/min) >60 Glucose (70 - 110 mg/dL) 125 Plasma Calcium (8.5 - 10.1 mg/dL) 8.5 Hematology WBC (4.5 - 11.5 K/uL) 8.0 RBC (4.50 - 5.90 M/uL) 5.10 Hgb (13.5 - 17.5 gm/dL) 10.5 Hct (41.0 - 53.0 %) 33.9 MCV (80 - 100 fL) 67 MCH (26 - 34 pg) 21 RDW (11.6 - 14.8 %) 16.9 Neut % (Auto) (50 - 75 %) 56.9 Lymph % (Auto) (25 - 40 %) 35.6 [place] % (Auto) (3 - 14 %) 4.8 Eos % (Auto) (0 - 4 %) 2.2 Baso % (Auto) (0 - 2 %) 0.5 Plt Count, EDTA (150 - 400 K/uL) 315 RBC Morphology ([id number] A) ANISOCYTOSIS +1 PUBS MCHC (31 - 37 g/dL) 31 Discharge Instructions/Meds need to follow up with his PCP within the one week for new DM and Anemia. Follow up with ortho and wound care per his instruction
--- NOTE | 2017-01-15 09:06 | Discharge Summary ---
Discharge Summary Report Admit Date 01/07/17 Discharge Date 01/15/17 Admission Diagnosis 1-Cellulitis right leg 2- DM new 3-SIRS 4- Anemia Discharge Diagnosis 1-Abcess of righ leg 2- DM 3- Anemia Brief History The patient is a 26-year-old white male with a significant past medical history of obesity who presented to [facility] emergency department on the day of admission secondary to complaints of painful, swollen, erythematous right lower leg. [facility] ER evaluation was consistent with cellulitis of the right lower leg-rule out necrotizing fasciitis. Secondary to the above the patient was seen in consultation by Dr. Acevedo and admitted by Kendall Escalona M.D. (hospitalist service) for further evaluation and treatment. Hospital Course The patient was started on Vanco and Zosyn and was put on Lantus insulin. Ortho cousult was optained. Later on patient has to have incisiona and depritment and drainage because he developped abcess in that area. C/S showed Strep. sensitive to PCN, so antibiotis switched to keflex and clindamycin and then to PCN G. Becasue pt had a surge in ESR went through right knee arthroscopy which was unremarkable. Lantus insulin was switched to Metformin 5oomg bid and patient did well on it. He is doing fine now no drainage from wound, pain is improved no fever or chills, no nausea or vomiting. Discharge medications: PCN G and pain medication per Ortho. Also continue Metformine 500mg bid. Patient states has test strips and Glucometer at home to check his blood sugar twice a day. General Appearance No acute distress Lungs Clear to auscultation Cardiovascular Regular Rate, Normal S1, Normal S2, No murmurs Abdomen Normal bowel sounds, Soft, No tenderness Skin No Rashes Psych/Mental Status Mental status NL, Mood NL Lab/Imaging Laboratory Tests 01/15 0501 Chemistry Plasma Sodium (136 - 145 mmol/L) 142 Plasma Potassium (3.5 - 5.1 mmol/L) 3.5 Plasma Chloride (98 - 107 mmol/L) 105 CO2 (Enzymatic) (21 - 32 mmol/L) 29 BUN (7 - 18 mg/dL) 11 Creatinine (0.6 - 1.3 mg/dL) 0.8 Est GFR ( Amer) (mL/min) >60 Est GFR (Non-Af Amer) (mL/min) >60 Glucose (70 - 110 mg/dL) 125 Plasma Calcium (8.5 - 10.1 mg/dL) 8.5 Hematology WBC (4.5 - 11.5 K/uL) 8.0 RBC (4.50 - 5.90 M/uL) 5.10 Hgb (13.5 - 17.5 gm/dL) 10.5 Hct (41.0 - 53.0 %) 33.9 MCV (80 - 100 fL) 67 MCH (26 - 34 pg) 21 RDW (11.6 - 14.8 %) 16.9 Neut % (Auto) (50 - 75 %) 56.9 Lymph % (Auto) (25 - 40 %) 35.6 [place] % (Auto) (3 - 14 %) 4.8 Eos % (Auto) (0 - 4 %) 2.2 Baso % (Auto) (0 - 2 %) 0.5 Plt Count, EDTA (150 - 400 K/uL) 315 RBC Morphology (41281 A) ANISOCYTOSIS +1 PUBS MCHC (31 - 37 g/dL) 31 Discharge Instructions/Meds need to follow up with his PCP within the one week for new DM and Anemia. Follow up with ortho and wound care per his instruction
[2017-01-15] MEDS ORDERED: PENICILLIN V P500 MG PO (09:16)
[2017-01-15] MEDS ORDERED: OXYCODONE IR PO (09:16)
[2017-01-15] MEDS ORDERED: OXAYDO5 MG PO (09:19)
[2017-01-15 10:34] VITALS: BP 117/78
== END 2017-01-15 13:00 | disposition home or self-care (01) | DRG 269 ==
LOC: ED SRH 09:23 → EDBD 09:24 → TRANS SRH 12:24 → ACUTE2 SRH 13:29
PROVIDERS: Orthopaedic Surgery; ADMIT Emergency Medicine
PROC: 0J9N0ZZ Drainage of Right Lower Leg Subcutaneous Tissue and Fascia, Open Approach (ICD-10-PCS; principal; 2017-01-10 17:30)
PROC: 0SJC4ZZ Inspection of Right Knee Joint, Percutaneous Endoscopic Approach (ICD-10-PCS; 2017-01-13 12:00)
PROC: 0JJWXZZ Inspection of Lower Extremity Subcutaneous Tissue and Fascia, External Approach (ICD-10-PCS; 2017-01-13 12:00)
DX: L02.415 Cutaneous abscess of right lower limb (principal); E11.65 Type 2 diabetes mellitus with hyperglycemia; E53.8 Deficiency of other specified B group vitamins; B95.4 Other streptococcus as the cause of diseases classified elsewhere; L03.115 Cellulitis of right lower limb; S80.211A Abrasion, right knee, initial encounter; W17.89XA Other fall from one level to another, initial encounter; Y93.89 Activity, other specified; Y92.59 Other trade areas as the place of occurrence of the external cause; Y99.0 Civilian activity done for income or pay; E66.9 Obesity, unspecified; Z68.41 Body mass index [BMI] 40.0-44.9, adult; D50.9 Iron deficiency anemia, unspecified